=== PATIENT | female | born 1950 | race Caucasian/White ===

== ENCOUNTER → 2016-08-09 | Day surgery (SDC) | payer OTHER ==
[~2016-08-09] MED LIST: ALBU1.25 NEB; ALBU6.7H INH; AMIT1TAB79 PO; AMLO2.5T PO; ATOR40TA16 PO; CLIN1CAP6 PO; CLINDAMYCIN PHOS 900 MG/6 ML VIAL ONE; FURO20TA PO; GABA300C5 PO; HYDROmorphone HCL PF 2 MG/ML VIAL ONE; INSU1INJ14 SQ; LACTATED RINGER'S 1000 ML INJ 1,000 ML ONE; LEVA500T PO; LIDOCAINE 1%/EPINEPHrine 1:100,000 SOLN 20 ML VIAL ONE; LOSA50TA PO; MAGN400C2 PO; MECL-62 PO; METO50TA PO; MIDAZOLAM HCL 2 MG/2 ML VIAL ONE; MOME17I EACH NARE; NOVOLOGSS SQ; ONDANSETRON HCL 4 MG/2 ML VIAL IV PUSH ONE; OXYC1CAP PO; POTA-245 PO; PROM25TA5 PO; PROPOFOL 200 MG/20 ML AMP IV ONE; SODIUM CHLORIDE 0.9% INJ 10 ML ONE; SODIUM CHLORIDE 0.9% SOLN 100 ML BAG IV ONE; ZOLO50TA PO; ceFAZolin INJ 1,000 MG VIAL ONE
--- NOTE | 2016-08-11 09:44 | MP ---
cc: YOSELYN NAGEL M.D. DATE OF SURGERY 08/09/2016 PREOPERATIVE DIAGNOSES Status post left mastectomy POSTOPERATIVE DIAGNOSIS Status post left mastectomy OPERATION Left breast tissue pharmacy stock clerk and AlloMax reconstruction stage I [address] Nagel ANESTHESIA General INDICATIONS This is a 66-year-old white female with left mastectomy for breast cancer who has finished all her treatments and is ready for reconstruction. She has a slightly redundant skin flap. She underwent a detailed explanation of the procedure including prosthetic reconstruction versus autologous reconstruction, the stages of reconstruction with prosthesis and overall completion of the left side reconstruction followed by a symmetrizing procedure on the right was explained. The possibility of bleeding, infection, wound healing problems, wound dehiscence, exposed prosthesis and loss of prosthesis and reconstruction was explained and possible multiple steps of surgery were discussed, implants were shown, pharmacy stock clerk was shown. The patient was also explained about the AlloMax graft and she is willing to go ahead with the surgery. She had a Staph infection mastitis on the left breast in the past, approximately a year ago. PROCEDURE The patient was brought to the operating room, was given supine position and anesthesia was started. Prep and drape was done. IV antibiotics were given. The time-out was called and completed. The mastectomy scar was injected with lidocaine 1% with epi and saline mixture and the pectoralis major muscle border and underside was also injected. It was noted that there was a fair amount of scar tissue adhesions in the midportion of the mastectomy. The mastectomy scar was excised and discarded. The remaining flap thickness fatty tissue was noted to have a mild amount of fat necrosis and calcification. Coagulation type of appearance including one spot of liquid calcified tissue most likely mixed with the saline injection that was given. No other issues were noted. The surgical scar is dense against the pectoralis major muscle lateral border and a portion of it was freed with sharp dissection and some of it was left alone in the areas where it was to thin. The pectoralis major muscle was identified near the axillary fold and a passage was made under the muscle and extended into the remaining subpectoral space bringing it back out towards the lateral border and the lateral border with the Bovie. The cavity was doubly checked for hemostasis. Small bleeders were cauterized. No perforated vessels were encountered on the medial aspect. The inframammary fold was raised and lowered slightly. The lateral extent of the pocket was maintained at the anterior axillary line. An AlloMax graft was hydrated and placed smooth side towards the pharmacy stock clerk, serial number [id number]. The graft was tacked to the inframammary fold and lateral aspect only. The pharmacy stock clerk selected was [employer] MX tissue pharmacy stock clerk, catalogue number [id number] nominal capacity 600 cc. The serial number [id number]. The pharmacy stock clerk was emptied of all the air and while being held folded to let the vacuum form the shape of the pharmacy stock clerk folded on the backside. The pharmacy stock clerk was placed with the fill port oriented at 12 o'clock and the AlloMax graft was laid over the pharmacy stock clerk itself. It was not necessary to tack it any further. The cavity was irrigated clean and suctioned out as well. The bleeding was minimal. No need for a drain. The soft tissue was closed in two layers with 2-0 Vicryl in the deep tissue and dermal inverting sutures as well. The skin was closed with the 3-0 Prolene subcuticular running suture. The pharmacy stock clerk was filled using the supplied magnet and the fill tube, final volume added 360 cc of normal saline using a three-way knotted technique. The pharmacy stock clerk position and outlined were satisfactory. The patient remained stable. Intraoperative blood loss less than 10 cc. No complications. signed, not fully reviewed MD MAXINE Moreno/OMID /11:29 AM /9:32 AM RICKEY
== END | disposition home or self-care (01) ==
LOC: ESDC 07:43
PROVIDERS: ATTEND Plastic Surgery
DX: C50.912 Malignant neoplasm of unspecified site of left female breast (principal); Z90.12 Acquired absence of left breast and nipple; E11.9 Type 2 diabetes mellitus without complications; Z79.4 Long term (current) use of insulin
CPT/HCPCS: 00402; 15777; 19357; 82948; C1789; J1170; J2250; J2405; J3010; J7120; Q4100; J0690

== ENCOUNTER 2016-08-23 20:41 | Inpatient (IN) | payer OTHER, MEDICARE ==
[~2016-08-23] VITALS: Ht 162.6 cm; Wt 88.6 kg
[~2016-08-23 20:41] MED LIST changes: -CLIN1CAP6 PO; -CLINDAMYCIN PHOS 900 MG/6 ML VIAL ONE; -HYDROmorphone HCL PF 2 MG/ML VIAL ONE; -LACTATED RINGER'S 1000 ML INJ 1,000 ML ONE; -LEVA500T PO; -LIDOCAINE 1%/EPINEPHrine 1:100,000 SOLN 20 ML VIAL ONE; -MIDAZOLAM HCL 2 MG/2 ML VIAL ONE; -ONDANSETRON HCL 4 MG/2 ML VIAL IV PUSH ONE; -OXYC1CAP PO; -PROPOFOL 200 MG/20 ML AMP IV ONE; -SODIUM CHLORIDE 0.9% INJ 10 ML ONE; -SODIUM CHLORIDE 0.9% SOLN 100 ML BAG IV ONE; -ceFAZolin INJ 1,000 MG VIAL ONE
[2016-08-23 20:44] VITALS: BP 164/81; PULSE 112; RESP 16; TEMP 98.2; O2SAT 95
[2016-08-23 22:52] VITALS: BP 186/83; PULSE 84; RESP 16; TEMP 98.2; O2SAT 96
[2016-08-23] MEDS ORDERED: metroNIDAZOLE 500 MG INJ 100 ML IV STA (23:14)
[2016-08-23] MEDS ORDERED: AZTREONAM INJ 2,000 MG in SODIUM CHLORIDE 0.9% INJ 100 ML IV STA (23:14)
--- NOTE | 2016-08-23 23:14 | PD ---
HPI Chief Complaint: Skin Problem Time Seen by Provider: 22:45 Travel History International Travel<30 days: No Contact w/Intl Traveler<30days: No Traveled to known affect area: No History of Present Illness HPI The patient is a 66 year old female who presents to the [facility] emergency department with a history of left breast reconstruction with tissue adobe layer helper done on August [address] Nagel. The patient is status post left mastectomy after being diagnosed with infiltrating ductal carcinoma. The patient reports that she followed up with her surgeon for reexamination last Monday, week ago and when the bandages were removed the patient was noted to have redness and swelling to the left breast suspicious for postoperative infection. She was started on Bactrim. She reports that this past weekend she began to drain a yellow drainage from the left breast. She reports that this again sealed over and she thought things were improving up until today when the swelling, redness, pain increased and then she developed drainage from the wound again. She denies calling , to notify him of the recent changes. She denies having any known fevers or chills. She denies having any nausea or vomiting. She reports that over the last 2 days she has had intermittent diarrhea. She reports that yesterday she had 4-5 episodes of brown loose stool. She denies having any blood in her stool or mucus in her stool. She reports the diarrhea improved after taking Imodium as night. She also reports that she's had some cough and congestion with ear pressure over the last 2 days. The patient denies having any worsening shortness of breath. She reports that she does have some shortness of breath with exertion related to her COPD. She is not on any home O2. The patient denies any neck pain, chest pain, worsening shortness of breath, abdominal pain, vomiting, urinary symptoms, or neurologic symptoms. 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 Heart Rhythm Problems: No Cancer: Yes (LEFT BREAST) Cardiac Catheterization: No Cardiovascular Problems: Yes (CHF) High Cholesterol: No Congestive Heart Failure: Yes COPD: Yes Diabetes: Yes (INSULIN DEPENDENT) Diminished Hearing: No Endocrine: Yes Gastrointestinal Disorders: Yes GERD: Yes Genitourinary: Yes Hepatitis: No (INFLAMMED LIVER FROM ACUTE PANCREATITIS) Hiatal Hernia: No Hypertension: Yes Immune Disorder: No Implanted Vascular Access Dvce: No Musculoskeletal: Yes (DISC PROBLEM LOWER BACK) Neurologic: Yes (NEUROPATHY HANDS AND FEET, SHORT TERM MEMORY PROB FROM HYPOVOLEMIC SHOCK) Psychiatric: No Reproductive: No Respiratory: Yes (COPD) Pancreatitis: Yes Renal Failure: Yes (STAGE 3 KIDNEY DISEASE) Thyroid Disease: No Menopausal: Yes Past Surgical History Narrative Surgical The patient's past surgical history is significant for an appendectomy, left breast mastectomy, left breast reconstruction on August 09, 2016 with Ed placement, chemical sympathectomy to the celiac plexus, cholecystectomy, dilation and curettage, hernia repair, hysterectomy, ovarian surgery, partial pancreatectomy, splenectomy. Abdominal Surgery: Yes (PARTIAL PANCREAS REMOVED) AICD: No Appendectomy: Yes Cardiac Surgery: No Cholecystectomy: Yes (AND SPLEEN) Coronary Artery Bypass Graft: No Ear Surgery: No Endocrine Surgery: Yes (PARTIAL PANCREAS REMOVED) Eye Surgery: No Genitourinary Surgery: Yes (STONE RETREIVAL POSS RIGHT SIDE) Gynecologic Surgery: Yes (TOTAL HYSTERECTOMY) Hysterectomy: Yes Joint Replacement: No Oral Surgery: No Pacemaker: No Thoracic Surgery: No Other Surgery: Yes (R BREAST duct removal ) Social History Alcohol Use: Yes (OCC) Tobacco Use: No Substance Use: No Allergies-Medications (Allergen,Severity, Reaction): Coded Allergies: Contrast Media (Verified Allergy, Severe, Anaphylaxis, 08/23/16) Metformin (Verified Allergy, Severe, RENAL FAILURE, 08/23/16) Penicillin (Verified Allergy, Severe, Anaphylaxis, 08/23/16) Patient reports she has tolerated Keflex on multiple occassions. PCN allergy occured as a child while having a URI. Never s/b Allergy MD to confirm. Aspirin (Verified Allergy, Intermediate, Nausea/Vomiting, 08/23/16) BLEEDING WHEN ENOUGH IS TAKEN Barium Sulfate (Verified Allergy, Intermediate, Nausea/Vomiting, 08/23/16) Lisinopril (Verified Allergy, Intermediate, Tachycardia, 08/23/16) Lemon (Verified Allergy, Unknown, Nausea/Vomiting, 08/23/16) PATIENT STATED " I AM ALLERGIC TO LEMON EVERYTIME I EAT OR DRINK SOMETHING WITH IT I GET NAUSIATED OR VOMIT" Lortab (Verified Allergy, Unknown, 08/23/16) NOT SURE IF THIS WAS THE CASE OF HER NAUSEA, HAD A FENTANYL PATCH AT THE SAME TIME Toradol (Verified Allergy, Unknown, PHYSICIAN CANCELLED DUE TO VOMITING, ) Reported Meds & Prescriptions Reported Meds & Active Scripts Active Reported Tresiba Flextouch Pen Inj (Insulin Degludec Inj) 300 unit/3 ML Pen 50 Units SQ HS Zoloft (Sertraline HCl) 50 Mg Tab 50 Mg PO HS Phenergan (Promethazine HCl) 25 Mg Tab 25 Mg PO Q4HR PRN Klor-Con M20 (Potassium Chloride Microencaps) 20 Meq Tab 20 Meq PO DAILY Nasonex Nasal [place] (Mometasone Furoate) 50 Mcg/Act Naspr 2 [place] EACH NARE DAILY Metoprolol Tartrate 50 Mg Tab 50 Mg PO BID Meclizine (Meclizine HCl) 25 Mg Tab 25 Mg PO PRN DIZZINESS PRN Magnesium Oxide 400 Mg Cap 1 Cap PO DAILY Losartan (Losartan Potassium) 50 Mg Tab 50 Mg PO BID Novolog Inj (Insulin Aspart) 100 Unit/Ml Inj 15 Units SQ TIDPC Gabapentin 300 Mg Cap 900 Mg PO HS Gabapentin 300 Mg Cap 300 Mg PO BID Furosemide 20 Mg Tab 20 Mg PO DAILY Elavil (Amitriptyline HCl) 25 Mg Tab 50 Mg PO HS Atorvastatin (Atorvastatin Calcium) 40 Mg Tab 40 Mg PO HS Amlodipine (Amlodipine Besylate) 2.5 Mg Tab 2.5 Mg PO DAILY Albuterol Neb (Albuterol Sulfate) 1.25 Mg/3 Ml Neb 1.25 Mg NEB Q6HR NEB PRN Proventil Hfa 6.7 GM Inh (Albuterol Sulfate) 90 Mcg/Act Aer 1 Puff INH Q6H PRN Review of Systems Except as stated in HPI: all other systems reviewed are Neg General / Constitutional: No: Fever Eyes: No: Visual changes HENT: Positive: Congestion, No: Headaches Cardiovascular: Positive: Dyspnea on exertion, No: Chest Pain or Discomfort Respiratory: Positive: Cough, No: Shortness of Breath Gastrointestinal: Positive: Diarrhea, No: Nausea, Vomiting, Abdominal Pain Genitourinary: No: Dysuria Musculoskeletal: No: Pain Skin: Positive Lumps, Positive Change in Pigmentation, Positive Other (swelling , redness to the left breast), No Rash Neurologic: No: Weakness Psychiatric: No: Depression Endocrine: No: Polydipsia Hematologic/Lymphatic: No: Easy Bruising Physical Exam Narrative General: The patient is a well-developed well-nourished female in no acute distress. Head and Neck exam: Head is normocephalic atraumatic. Eyes: EOMI, pupils are equal round and reactive to light. Nose: Midline septum with pink mucous membranes Mouth: Dentition unremarkable. Moist mucus membranes. Posterior oropharynx is not erythematous. No tonsillar hypertrophy. Uvula midline. Airway patent. Neck: No palpable lymphadenopathy. No nuchal rigidity. No thyromegaly. Cardiovascular: Regular rate and rhythm without murmurs, gallops, or rubs. Lungs: Clear to auscultation bilaterally. No wheezes, rhonchi, or rales. Abdomen: Soft, without tenderness to palpation in all 4 quadrants of the abdomen. No guarding, rebound, or rigidity. Normal bowel sounds are audible. No tenderness on palpation of McBurney's point. Extremities: No clubbing, cyanosis, or edema. 2+ pulses in all 4 extremities. No calf tenderness on palpation. Back: No spinous process tenderness to palpation. No costovertebral angle tenderness to palpation. Neurologic Exam: Grossly nonfocal. Skin Exam: On examination of the area of interest, the left breast, the patient is noted to have erythema surrounding her postop wound, with an area of fluctuance noted along the medial aspect. There is no pointing. Upon pressure of the area the patient is noted to have a thin yellow drainage from the lateral aspect of the wound. Data Data Last Documented VS Vital Signs Date Time Temp Pulse Resp B/P Pulse Ox O2 Delivery O2 Flow Rate FiO2 08/24/16 01:00 78 18 125/57 96 08/23/16 22:52 98.2 Orders Electrocardiogram (08/23/16 23:00) Complete Blood Count With Diff (08/23/16 23:00) Comprehensive Metabolic Panel (08/23/16 23:00) Prothrombin Time / Inr (Pt) (08/23/16 23:00) Act Partial Throm Time (Ptt) (08/23/16 23:00) Blood Culture (08/23/16 23:00) C-Reactive Protein (Crp) (08/23/16 23:00) Magnesium (Mg) (08/23/16 23:00) Wound Culture And Gram Stain (08/23/16 23:00) Chest, Single Ap (08/23/16 23:00) Iv Access Insert/Monitor (08/23/16 23:00) Ecg Monitoring (08/23/16 23:00) Oximetry (08/23/16 23:00) Lactic Acid Sepsis Protocol (08/23/16 23:00) Sodium Chlor 0.9% 1000 Ml Inj (Ns 1000 M (08/23/16 23:15) Vancomycin Inj (Vancomycin Inj) (08/23/16 23:15) Aztreonam Inj (Azactam Inj) (08/23/16 23:14) Metronidazole 500 Mg Inj (Flagyl 500 Mg (08/23/16 23:14) Admit Order (Ed Use Only) (08/24/16 01:44) Consult Plastic Surgery (08/24/16 ) Labs Laboratory Tests Test 08/23/16 08/24/16 23:50 01:05 White Blood Count 17.2 TH/MM3 Red Blood Count 3.88 MIL/MM3 Hemoglobin 11.6 GM/DL Hematocrit 35.4 % Mean Corpuscular Volume 91.3 FL Mean Corpuscular Hemoglobin 30.0 PG Mean Corpuscular Hemoglobin 32.8 % Concent Red Cell Distribution Width 15.7 % Platelet Count 682 TH/MM3 Mean Platelet Volume 8.9 FL Neutrophils (%) (Auto) 64.7 % Lymphocytes (%) (Auto) 26.3 % Monocytes (%) (Auto) 7.2 % Eosinophils (%) (Auto) 1.0 % Basophils (%) (Auto) 0.8 % Neutrophils # (Auto) 11.1 TH/MM3 Lymphocytes # (Auto) 4.5 TH/MM3 Monocytes # (Auto) 1.2 TH/MM3 Eosinophils # (Auto) 0.2 TH/MM3 Basophils # (Auto) 0.1 TH/MM3 CBC Comment DIFF FINAL Differential Comment Prothrombin Time 10.7 SEC Prothromb Time International 1.0 RATIO Ratio Activated Partial 26.3 SEC Thromboplast Time Sodium Level 142 MEQ/L Potassium Level 3.4 MEQ/L Chloride Level 111 MEQ/L Carbon Dioxide Level 24.2 MEQ/L Anion Gap 7 MEQ/L Blood Urea Nitrogen 14 MG/DL Creatinine 0.72 MG/DL Estimat Glomerular Filtration 81 ML/MIN Rate Random Glucose 117 MG/DL Lactic Acid Level 1.7 mmol/L Calcium Level 7.7 MG/DL Magnesium Level 2.0 MG/DL Total Bilirubin 0.4 MG/DL Aspartate Amino Transf 12 U/L (AST/SGOT) Alanine Aminotransferase 17 U/L (ALT/SGPT) Alkaline Phosphatase 60 U/L C-Reactive Protein 0.38 MG/DL Total Protein 6.6 GM/DL Albumin 3.1 GM/DL MDM Medical Decision Making Medical Screen Exam Complete: Yes Emergency Medical Condition: Yes Medical Record Reviewed: Yes Interpretation(s) Last Impressions Chest X-Ray 08/23/16 2300 Signed Impressions: Service Date/Time: Tuesday, August 23, 2016 23:41 - CONCLUSION: 1. Mild basilar density most characteristic of atelectasis. No effusion or pneumothorax. Dennis Powell MD Differential Diagnosis Left breast abscess, versus cellulitis, versus sepsis, versus seroma. Narrative Course During the course of the patients emergency department visit, the patients history, examination, and differential diagnosis were reviewed with the patient. The patient had IV access obtained and blood work sent for analysis. The patient was placed on a residential monitor with oximetry and blood pressure monitoring. An EKG was done on arrival. The patient's EKG shows a sinus rhythm , no acute ST segment elevation or depression. A call was placed out to the patient's surgeon, . He did agree to see the patient in consultation. [facility] Blood cultures 2 were drawn, a wound culture was done of the drainage from the patient's left breast. The patient was provided normal saline 1 L IV fluid bolus, Zosyn 3.375 g IV, vancomycin 1 g IV. The patients laboratory studies were reviewed and remarkable for a white count of 17.2, hemoglobin 11.6, platelets 682 with an unremarkable differential. CMP is remarkable for potassium of 3.4, chloride 111, glucose 117, calcium 7.7, AST 12, C-reactive protein 0.38, lactic acid 1.7. PT PTT within normal limits. Radiology studies were reviewed and remarkable for basilar atelectasis, no other acute abnormality. The patients results were discussed with the patient, including the plan of care. I explained that further testing and/ or monitoring is indicated based on the patients history, examination, and/ or laboratory findings. Therefore, I recommended admission for additional evaluation. The patient expressed understanding and was agreeable with this plan. The patient was admitted to the hospital in stable condition and sent to a [facility]. Sepsis Criteria SIRS Criteria (2 or more): WBC > 14398, < 4000 or > 10% bands Sepsis Criteria (SIRS+source): Infect source susp/known Physician Communication Physician Communication I spoke to regarding this patient's case at 11:10 PM. He did agree to see the patient consultation. He requested that the [facility] be [facility]. The patient's case was [facility] with [facility] who did agree to admit the patient to Dr. Ryan service. Diagnosis Primary Impression: Postoperative infection of breast incision Qualified Code: T81.4XXA - Postoperative infection of breast incision, initial encounter Jie Feng MD Aug 23, 2016 23:14 initial encounter Jie Feng MD Aug 23, 2016 23:14
[2016-08-23] MEDS ORDERED: VANCOMYCIN INJ 1,000 MG in SODIUM CHLOR 0.9% 250 ML INJ 250 ML IV ONE (23:15)
[2016-08-23] MEDS ORDERED: SODIUM CHLOR 0.9% 1000 ML INJ 1,000 ML IV ONE (23:15)
[2016-08-24] VITALS (10 sets, daily range): BP systolic 100–155; BP diastolic 56–70; PULSE 64–92; RESP 15–22; TEMP 97.5–98; O2SAT 93–96
[2016-08-24 00:23] LABS: AUTOMATED NEUTROPHIL # 11.1 TH/MM3 (1.8-7.7); BASOPHIL # 0.1 TH/MM3 (0-0.2); BASOPHIL % 0.8 % (0.0-2.0); EOSINOPHIL # 0.2 TH/MM3 (0-0.4); HEMATOCRIT 35.4 % (35.0-46.0); HEMO FLAGS DIFF FINAL; LYMPH % 26.3 % (9.0-44.0); LYMPHOCYTE # 4.5 TH/MM3 (1.0-4.8); MEAN CELL VOLUME 91.3 FL (80.0-100.0); MEAN CORPUSCULAR HGB CONC 32.8 % (32.0-36.0); MONO % 7.2 % (0.0-8.0); NEUT % 64.7 % (16.0-70.0); PLATELET COUNT 682 TH/MM3 (150-450); RED BLOOD COUNT 3.88 MIL/MM3 (4.00-5.30); RED CELL DISTRIBUTION WIDTH 15.7 % (11.6-17.2); WHITE BLOOD COUNT 17.2 TH/MM3 (4.0-11.0)
[2016-08-24 00:36] LABS: APTT (PATIENT) 26.3 SEC (24.3-30.1); PROTHROMBIN TIME - PATIENT 10.7 SEC (9.8-11.6)
--- NOTE | 2016-08-24 00:43 | RADRPT ---
EXAM DATE/TIME: 08/23/2016 23:41 [facility] COMPARISON: CHEST SINGLE AP, September 25, 2015, 10:37. INDICATIONS : Cough. Congestion. MEDICAL HISTORY : None. SURGICAL HISTORY : None. ENCOUNTER: Initial ACUITY: 3 days PAIN SCORE: 7/10 LOCATION: Bilateral chest FINDINGS: A single view of the chest demonstrates postoperative changes within the left breast. Minimal basilar atelectasis. No effusion. No pneumothorax. Heart size normal. CONCLUSION: 1. Mild basilar density most characteristic of atelectasis. No effusion or pneumothorax. Dennis Powell MD on August 24, 2016 at 0:40 Board Certified Radiologist. This report was verified electronically.
[2016-08-24 01:29] LABS: ALT (GPT) 17 U/L (10-53); ANION GAP 7 MEQ/L (5-15); AST (GOT) 12 U/L (15-37); BICARBONATE 24.2 MEQ/L (21.0-32.0); BLOOD UREA NITROGEN 14 MG/DL (7-18); CHLORIDE 111 MEQ/L (98-107); GLOMERULAR FILTRATION RATE 81 ML/MIN (>89); POTASSIUM 3.4 MEQ/L (3.5-5.1); SODIUM (NA) 142 MEQ/L (136-145)
[2016-08-24 01:32] LABS: ALKALINE PHOSPHATASE 60 U/L (45-117); TOTAL BILIRUBIN ADULT 0.4 MG/DL (0.2-1.0)
[2016-08-24] MEDS ORDERED: AZTREONAM INJ 2,000 MG in SODIUM CHLORIDE 0.9% INJ 100 ML IV SCH (02:45)
[2016-08-24] MEDS ORDERED: metroNIDAZOLE 500 MG INJ 100 ML IV SCH (02:45)
[2016-08-24] MEDS ORDERED: VANCOMYCIN INJ 1,000 MG in SODIUM CHLOR 0.9% 250 ML INJ 250 ML IV SCH (02:45)
[2016-08-24] MEDS ORDERED: SODIUM CHLORIDE 0.9% FLUSH 10 ML FLUSH IVF PRN (02:45)
[2016-08-24] MEDS ORDERED: MORPHINE SULFATE 4 MG/ML INJ IV PUSH ONE (06:00)
[2016-08-24] MEDS ORDERED: AMITRIPTYLINE HCL 25 MG TAB PO ONE (06:00)
[2016-08-24] MEDS: AZTREONAM INJ 2,000 MG in SODIUM CHLORIDE 0.9% INJ 100 ML IV SCH ×2 (07:53→17:02)
[2016-08-24] MEDS: metroNIDAZOLE 500 MG INJ 100 ML IV SCH ×3 (07:54→23:12)
[2016-08-24] MEDS: SODIUM CHLORIDE 0.9% FLUSH 10 ML FLUSH IV FLUSH SCH ×2 (08:18→21:00)
--- NOTE | 2016-08-24 09:08 | HHI.HP ---
HPI Service [facility] Hospitalists Primary Care Physician Ghanshyam Wright Admission Diagnosis Left breast infection post op Chief Complaint: Left breast infection Travel History International Travel<30 Days: No Contact w/Intl Traveler <30 Da: No Traveled to Known Affected Are: No History of Present Illness Mrs. Douglass is a pleasant 66 y/o female with invasive ductal carcinoma of the left breast s/p mastectomy in 03/2016, diabetes mellitus, GERD, hypertension , osteoarthritis, peripheral neuropathy, and hyperlipidemia. Pt was previously seen by us in 04/2015 with an extensive abscess in the left breast and was seen by Dr. Lawler and underwent incision and drainage. Subsequently she was treated with IV antibiotics at that time. Cultures at that time grew out Staph aureus. She was found to have a lump in her left breast and biopsy in 02/2016 revealed invasive ductal carcinoma and pt underwent left breast mastectomy and sentinel node biopsy in 03/2016 with all lymph nodes being negative. Pt was seen by Dr. Nagel and underwent left breast reconstruction with tissue cosmetology professor on August 09, 2016. She reports that she followed up with Dr. Nagel for reexamination 1 week ago and when the bandages were removed the patient was noted to have redness and swelling to the left breast suspicious for postoperative infection. She was started on Bactrim. She reports that this past weekend she began to note yellow drainage from the left breast. She reports that this again sealed over and she thought things were improving up until yesterday when the swelling , redness, pain increased and then she developed drainage from the wound again. She did not call to notify him of the recent changes. She denies any fevers or chills, nausea or vomiting. She reports that over the last 2 days she has had intermittent diarrhea. She reports that yesterday she had 4-5 episodes of brown loose stool. She denies having any blood in her stool or mucus in her stool. She reports the diarrhea improved after taking Imodium as night. The patient denies having any worsening shortness of breath. She reports that she does have some shortness of breath with exertion related to her COPD, she is not on any home O2. The patient denies any chest pain, worsening shortness of breath from baseline, abdominal pain, vomiting, urinary symptoms, or neurologic symptoms. Review of Systems Constitutional: DENIES: Fever, Chills Eyes: DENIES: Vision loss Ears, nose, mouth, throat: DENIES: Hearing loss, Nasal discharge, Epistaxis Respiratory: DENIES: Wheezing, Shortness of breath Cardiovascular: COMPLAINS OF: Dyspnea on Exertion, DENIES: Chest pain, Palpitations Gastrointestinal: COMPLAINS OF: Diarrhea, DENIES: Abdominal pain, Black stools , Bloody stools, Nausea, Vomiting Genitourinary: DENIES: Hematuria, Dysuria Musculoskeletal: DENIES: Back pain Integumentary: DENIES: Rash Neurologic: DENIES: Headache Past Family Social History Past Medical History Left breast invasive ductal carcinoma Anemia Angina Asthma Cataracts Chronic Obstructive Pulmonary Disease Colitis Diabetes Type II Gastroesophageal Reflux Disease Hypertension Migraine Osteoarthritis Osteopenia Peptic Ulcer Disease Peripheral Neuropathy Pneumonia Preferred Language for Healthcare Information (Haitian) Thyroid Disease Upper Endoscopy Past Surgical History Left breast reconstruction on August 09, 2016 with AlloMax reconstruction Left breast mastectomy 03/2016 Appendectomy Breast biopsy Cholecystectomy Hernia repair Sigmoidoscopy Hysterectomy, Complete in 1980 Reported Medications Tresiba Flextouch Pen Inj (Insulin Degludec Inj) 300 unit/3 ML Pen 50 Units SQ HS Zoloft (Sertraline HCl) 50 Mg Tab 50 Mg PO HS Phenergan (Promethazine HCl) 25 Mg Tab 25 Mg PO Q4HR PRN Klor-Con M20 (Potassium Chloride Microencaps) 20 Meq Tab 20 Meq PO DAILY Nasonex Nasal Toney (Mometasone Furoate) 50 Mcg/Act Naspr 2 Toney EACH NARE DAILY Metoprolol Tartrate 50 Mg Tab 50 Mg PO BID Meclizine (Meclizine HCl) 25 Mg Tab 25 Mg PO PRN DIZZINESS PRN Magnesium Oxide 400 Mg Cap 1 Cap PO DAILY Losartan (Losartan Potassium) 50 Mg Tab 50 Mg PO BID Novolog Inj (Insulin Aspart) 100 Unit/Ml Inj 15 Units SQ TIDPC Gabapentin 300 Mg Cap 900 Mg PO HS Gabapentin 300 Mg Cap 300 Mg PO BID Furosemide 20 Mg Tab 20 Mg PO DAILY Elavil (Amitriptyline HCl) 25 Mg Tab 50 Mg PO HS Atorvastatin (Atorvastatin Calcium) 40 Mg Tab 40 Mg PO HS Amlodipine (Amlodipine Besylate) 2.5 Mg Tab 2.5 Mg PO DAILY Albuterol Neb (Albuterol Sulfate) 1.25 Mg/3 Ml Neb 1.25 Mg NEB Q6HR NEB PRN Proventil Hfa 6.7 GM Inh (Albuterol Sulfate) 90 Mcg/Act Aer 1 Puff INH Q6H PRN Allergies: Coded Allergies: Contrast Media (Verified Allergy, Severe, Anaphylaxis, 08/23/16) Metformin (Verified Allergy, Severe, RENAL FAILURE, 08/23/16) Penicillin (Verified Allergy, Severe, Anaphylaxis, 08/23/16) Patient reports she has tolerated Keflex on multiple occassions. PCN allergy occured as a child while having a URI. Never s/b Allergy MD to confirm. Aspirin (Verified Allergy, Intermediate, Nausea/Vomiting, 08/23/16) BLEEDING WHEN ENOUGH IS TAKEN Barium Sulfate (Verified Allergy, Intermediate, Nausea/Vomiting, 08/23/16) Lisinopril (Verified Allergy, Intermediate, Tachycardia, 08/23/16) Lemon (Verified Allergy, Unknown, Nausea/Vomiting, 08/23/16) PATIENT STATED " I AM ALLERGIC TO LEMON EVERYTIME I EAT OR DRINK SOMETHING WITH IT I GET NAUSIATED OR VOMIT" Lortab (Verified Allergy, Unknown, 08/23/16) NOT SURE IF THIS WAS THE CASE OF HER NAUSEA, HAD A FENTANYL PATCH AT THE SAME TIME Toradol (Verified Allergy, Unknown, PHYSICIAN CANCELLED DUE TO VOMITING, ) Family History Mother is . Father is . 1 brother who is . Social History Hx of tobacco use, quit 45 years ago but smoke 1ppd for 4 years She is an active drinker. Physical Exam Vital Signs Vital Signs Date Time Temp Pulse Resp B/P Pulse Ox O2 Delivery O2 Flow Rate FiO2 08/24/16 05:00 82 150/70 96 08/24/16 03:00 80 134/65 94 08/24/16 02:38 95 08/24/16 02:00 80 22 131/63 94 08/24/16 01:00 78 18 125/57 96 08/24/16 00:30 64 15 100/56 94 08/24/16 00:00 92 18 148/66 96 08/23/16 22:52 98.2 84 16 186/83 96 08/23/16 20:44 98.2 112 16 164/81 95 Physical Exam GENERAL: This is a well-nourished, well-developed patient, in no apparent distress. HEENT: Atraumatic. Normocephalic. No temporal or scalp tenderness. No scleral icterus. Airway patent. NECK: Trachea midline, supple, nontender. CARDIO: Regular. RESP: CTA bilaterally. ABD: +BS, soft, non-tender, nondistended. EXT: Extremities without clubbing, cyanosis, or edema. SKIN: Left chest erythema around her postop wound, with an area of fluctuance noted along the medial aspect. NEURO: Awake and alert. Motor and sensory grossly within normal limits. Normal speech. Laboratory Laboratory Tests Test 08/23/16 08/24/16 23:50 01:05 White Blood Count 17.2 Red Blood Count 3.88 Hemoglobin 11.6 Hematocrit 35.4 Mean Corpuscular Volume 91.3 Mean Corpuscular Hemoglobin 30.0 Mean Corpuscular Hemoglobin 32.8 Concent Red Cell Distribution Width 15.7 Platelet Count 682 Mean Platelet Volume 8.9 Neutrophils (%) (Auto) 64.7 Lymphocytes (%) (Auto) 26.3 Monocytes (%) (Auto) 7.2 Eosinophils (%) (Auto) 1.0 Basophils (%) (Auto) 0.8 Neutrophils # (Auto) 11.1 Lymphocytes # (Auto) 4.5 Monocytes # (Auto) 1.2 Eosinophils # (Auto) 0.2 Basophils # (Auto) 0.1 CBC Comment DIFF FINAL Differential Comment Prothrombin Time 10.7 Prothromb Time International 1.0 Ratio Activated Partial 26.3 Thromboplast Time Sodium Level 142 Potassium Level 3.4 Chloride Level 111 Carbon Dioxide Level 24.2 Anion Gap 7 Blood Urea Nitrogen 14 Creatinine 0.72 Estimat Glomerular Filtration 81 Rate Random Glucose 117 Lactic Acid Level 1.7 Calcium Level 7.7 Magnesium Level 2.0 Total Bilirubin 0.4 Aspartate Amino Transf 12 (AST/SGOT) Alanine Aminotransferase 17 (ALT/SGPT) Alkaline Phosphatase 60 C-Reactive Protein 0.38 Total Protein 6.6 Albumin 3.1 Date/Time Procedure Status Source Growth 08/24/16 00:25 Gram Stain - Final Resulted Wound Breast 08/24/16 00:25 Wound Culture Resulted Wound Breast Pending 08/24/16 00:00 Aerobic Blood Culture Received Blood Peripheral Pending 08/24/16 00:00 Anaerobic Blood Culture Received Blood Peripheral Pending Result Diagram: 08/23/16 5010 08/24/16 0105 Imaging Last Impressions Chest X-Ray 08/23/16 2300 Signed Impressions: Service Date/Time: Tuesday, August 23, 2016 23:41 - CONCLUSION: 1. Mild basilar density most characteristic of atelectasis. No effusion or pneumothorax. Dennis Powell MD Septic Shock Reassessment Heart: Regular rate and rhythm Lungs: Clear Skin: Warm Assessment and Plan Problem List: (1) Postoperative infection of breast incision Status: Acute Plan: - Pt with hx of left breast invasive ductal carcinoma s/p left breast mastectomy in 03/2016 - Pt underwent left breast reconstruction with tissue cosmetology professor on August 09, 2016. She reports that she followed up with Dr. Nagel for reexamination 1 week ago and was noted to have redness and swelling to the left breast suspicious for postoperative infection. She was started on Bactrim. She reports that this past weekend she began to note yellow drainage from the left breast, but she thought things were improving up until yesterday when the swelling, redness, pain increased and then she developed drainage from the wound again. - Pt was given Aztreonam, Vancomycin and Flagyl in the ED - Wound Culture ans blood cultures were drawn in the ED - Pt has been afebrile. - WBC count was over 17,000 at admission. - Dr. Nagel is consulted and pt is planned for surgical exploration and possible removal of the tissue cosmetology professor - Consult ID, pt was previously seen by ID in for a breast abscess which grew out MSSA and she was treated with Cefazolin. - Pt was continued on Aztreonam, Vancomycin and Flagyl from the ED. - Monitor labs - IVF - Pt is NPO for surgery - Supportive care - DVT prophylaxis with SCDs for now. (2) DM (diabetes mellitus) Status: Chronic Plan: - NovoLog SSI - Accu checks (3) HTN (hypertension) Status: Chronic Plan: - Resume Metoprolol - Her BP was low/normal overnight - Hold Losartan and Amlodipine for now and monitor. (4) COPD (chronic obstructive pulmonary disease) Status: Acute Plan: - Duonebs PRN (5) Depression Status: Chronic Plan: - Resume home meds Assessment and Plan Patient examined. Assessment and plan formulated with Mariama Mclaughlin PA-C. I agree with the above. Physician Certification 2 Midnight Certification Type: Admission for Inpatient Services Order for Inpatient Services The services are ordered in accordance with Medicare regulations or non- Medicare payer requirements, as applicable. In the case of services not specified as inpatient-only, they are appropriately provided as inpatient services in accordance with the 2-midnight benchmark. Estimated LOS (days): 4 4 days is the estimated time the patient will need to remain in the hospital, assuming treatment plan goals are met and no additional complications. Post-Hospital Plan: Not yet determined Problem Qualifiers (1) Postoperative infection of breast incision: Qualified Code: T81.4XXA - Postoperative infection of breast incision, initial encounter (2) DM (diabetes mellitus): Mariama Mclaughlin Aug 24, 2016 09:08 Azael Ryan DO Aug 25, 2016 22:57
--- NOTE | 2016-08-24 09:25 | MB ---
cc: YOSELYN RUANO M.D. DATE OF CONSULTATION 08/24/2016 REASON FOR CONSULTATION Possible left breast reconstruction infection. HISTORY This is a 66-year-old white female who underwent surgery for left breast cancer couple of weeks back on August 09. She had mastectomy and a delayed tissue nicking machine operator and AlloMax placement reconstruction. She did well immediate postop. She was seen a week later in the [facility] and was noted to have some redness along the surgical suture line and some spotting on the dressing. She was started on oral antibiotics prophylactically. She presented to the emergency room last night on her own and was noted to have bulging of the surgical incision with some drainage coming out on the medial aspect in particular. The emergency room physician has started her on IV antibiotics. She is being admitted to the [facility] and a culture sample has been taken. It is noted that her blood count WBC 17,000. She is not febrile. She does not have generalized sickness and otherwise is feeling well. The patient is a insulin-dependent diabetic, moderately obese, has had the mastectomy in the late part of March 2016. Reconstruction was a delayed one. Prior to the mastectomy she had an episode of mastitis - staph. PAST MEDICAL HISTORY The patient's other history includes: 1. COPD 2. Congestive heart failure 3. Asthma 4. Chronic arthritis 5. History of pancreatitis. 6. History of pancreatectomy and splenectomy. 7. Chronic renal insufficiency 8. Hyperlipidemia 9. Hypertension 10. Depression 11. Obesity 12. Hypothyroid 13. Insulin-dependent diabetes 14. Vitamin D deficiency PAST SURGICAL HISTORY She also has a history of surgery: 1. Appendix 2. Left mastectomy 3. Left breast reconstruction 4. Clinical sympathectomy on the celiac plexus. 5. Gallbladder removal 6. D&C 7. Hernia repair 8. Hysterectomy 9. Ovarian surgery 10. Partial pancreatectomy and splenectomy 11. It is not clear if she had the Pneumovax, but possibly she has been given that after the splenectomy. MEDICATIONS Current medications listed include a long list of: 1. Insulin 2. Zoloft 3. Phenergan 4. Potassium 5. Nasonex 6. Metoprolol 7. Meclizine 8. Magnesium 9. Losartan 10. Gabapentin 11. Lasix 12. Elavil 13. Atorvastatin 14. Amlodipine 15. Albuterol 16. Proventil ALLERGIES LISTED Include: METFORMIN, PENICILLIN, ASPIRIN, BARIUM, LISINOPRIL, LEMON FOOD AND ALSO LORTAB AND TORADOL. SOCIAL HISTORY The patient is a nonsmoker. No alcohol or drug abuse. No history of any risk factor for hepatitis or HIV. No history of blood transfusion. PHYSICAL EXAM The examination shows a 66-year-old white female with stable vital signs in the emergency room setting. VITAL SIGNS: Her vitals are showing a pulse rate in the range of 80 on the monitor. She is afebrile. GENERAL: She appears otherwise well rested. She is alert, oriented and able to move around by herself. The general examination is grossly within acceptable range. HEAD AND NECK: Shows clear sclerae, equal pupils. Trachea is in midline. There is no obvious thyromegaly. Neck movements are normal. CHEST: The chest has good expansion with normal breathing. Her breath and heart sounds have been recorded normal. EXTREMITIES: The extremities are grossly normal. There is no lymphedema on the left upper extremity. BREASTS: The local examination of the left breast reconstruction shows a horizontal mid breast incision with surgical suture in place. There is a bulging area on the medial aspect with discoloration of the skin present. No clear opening or drainage noted this morning. She also is coming up with a second small bulge on the lateral third of the incision most likely it is a continuous process. The breast feels relatively normal to touch on both sides. The redness is minimal, mostly the desquamation is more obvious now. The patient does not have a drain in place. The tissue expanders in the upper pole of the chest are not tender to touch or pressure. There is no sign of any lymphatic streaking in the left axilla. RECOMMENDATIONS The patient was advised that most likely this is a surgical issue while she is getting IV antibiotic. It is not likely to resolve with the antibiotic alone plus due to her multiple medical issues and insulin-dependent diabetes, it is advisable to go ahead and explore the left breast. There is a high chance that the nicking machine operator and the AlloMax will need to be removed and debrided, debride the area and allow her heal over completely and then consider a reconstruction in the future if she still desires to go ahead with that. There may be a small window of trying to salvage the reconstruction if the exploration reveals the process is limited to outside of the nicking machine operator and AlloMax cavity. If an attempt at salvage is made, it may or may not be possible to have the exact match of the nicking machine operator available and it may be necessary to use any type of available prosthesis with an nicking machine operator or an implant in order to maintain the pocket and the skin flaps. The patient understands that there is a high likelihood of removing the nicking machine operator and the AlloMax at this point. The patient will be kept n.p.o. and the OR will be called to schedule a time as soon as possible. The patient will continue under the medical service and on IV antibiotics. She may have to be hospitalized several days for the IV antibiotic protocol. MD MAXINE Moreno/OMID /8:48 AM /9:05 AM RICKEY
[2016-08-24] MEDS ORDERED: PROPOFOL 200 MG/20 ML AMP IV ONE (10:11)
[2016-08-24] MEDS: FLUTICASONE PROPIONATE 50 MCG/ACT 16 GM NASAL SPRAY EACH NARE SCH (11:00)
[2016-08-24] MEDS ORDERED: ONDANSETRON HCL 4 MG/2 ML VIAL IV PRN (11:30)
[2016-08-24] MEDS ORDERED: ACETAMINOPHEN 325 MG TAB PO PRN (11:30)
[2016-08-24] MEDS ORDERED: ALBUTEROL SULFATE 90 MCG/ACT HFA 8 GM INHALER INH PRN (12:00)
[2016-08-24] MEDS ORDERED: RESP: ALBUTEROL 2.5 MG/IPRATROPIUM 0.5 MG NEB (PRN) NEB (12:00)
[2016-08-24] MEDS: POTASSIUM CHLORIDE 20 MEQ CONTROLLED RELEASE TAB PO SCH (12:07)
[2016-08-24] MEDS: METOPROLOL TARTRATE 50 MG TAB PO SCH ×2 (12:08→21:00)
[2016-08-24] MEDS: VANCOMYCIN INJ 1,000 MG in SODIUM CHLOR 0.9% 250 ML INJ 250 ML IV SCH (12:08)
[2016-08-24] MEDS: GABAPENTIN 300 MG CAP PO SCH ×3 (12:08→21:00)
[2016-08-24] MEDS: SODIUM CHLOR 0.9% 1000 ML INJ 1,000 ML IV SCH ×2 (12:09→23:31)
[2016-08-24] MEDS: INSULIN ASPART SUPPLEMENTAL SCALE SQ SCH ×3 (12:15→23:30)
[2016-08-24] MEDS: MORPHINE SULFATE 4 MG/ML INJ IV PUSH PRN (13:22)
--- NOTE | 2016-08-24 16:34 | PD.CONS ---
History of Present Illness Service Infectious disease Consult Requested By Dr. Ryan Reason for Consult Evaluate patient with left surgical site breast infection Primary Care Physician Ghanshyam Wright Diagnoses: History of Present Illness Patient seen and examined. Records reviewed. Patient is a 66-year-old female diagnosed to have invasive ductal carcinoma last March 2016. She underwent left breast mastectomy and sentinel lymph node biopsy April 27, 2016. The lymph nodes were all negative. On July she underwent left breast reconstruction with placement of a tissue seat maker. A week after the surgery she went for her follow-up and she had an area of redness. She was placed on Bactrim. This weekend there was an area that spontaneously drained orange bloody colored fluid. It sealed up. However on day of admission it started draining again and so she percent to the hospital for further evaluation and treatment. She continued to have the redness. She she didn't think she had any fever or chills or sweats. There's been no respiratory GI or any urinary complaints. Since admission she has not been febrile. Her WBC count is 17,000. Patient was seen by plastic surgery, and plans to take her to surgery today. Patient currently is on IV vancomycin and Azactam. Infectious disease consultation has been requested to evaluate the patient. Review of Systems Constitutional: DENIES: Fever, Chills, Night Sweats Eyes: DENIES: Eye pain Ears, nose, mouth, throat: DENIES: Nasal discharge, Oral lesions, Throat pain, Running Nose, Sinus Pain, Toothache Respiratory: DENIES: Cough, Shortness of breath Cardiovascular: DENIES: Chest pain, Palpitations, Syncope Gastrointestinal: DENIES: Abdominal pain, Diarrhea, Nausea, Vomiting, Difficulty Swallowing Genitourinary: DENIES: Urinary frequency, Dysuria Musculoskeletal: DENIES: Joint pain, Joint Swelling Integumentary: DENIES: Rash Neurologic: DENIES: Headache Psychiatric: DENIES: Hallucinations Past Family Social History Allergies: Coded Allergies: Contrast Media (Verified Allergy, Severe, Anaphylaxis, 08/23/16) Metformin (Verified Allergy, Severe, RENAL FAILURE, 08/23/16) Penicillin (Verified Allergy, Severe, Anaphylaxis, 08/23/16) Patient reports she has tolerated Keflex on multiple occassions. PCN allergy occured as a child while having a URI. Never s/b Allergy MD to confirm. Aspirin (Verified Allergy, Intermediate, Nausea/Vomiting, 3/28/17) BLEEDING WHEN ENOUGH IS TAKEN Barium Sulfate (Verified Allergy, Intermediate, Nausea/Vomiting, 08/23/16) Lisinopril (Verified Allergy, Intermediate, Tachycardia, 08/23/16) Lemon (Verified Allergy, Unknown, Nausea/Vomiting, 08/23/16) PATIENT STATED " I AM ALLERGIC TO LEMON EVERYTIME I EAT OR DRINK SOMETHING WITH IT I GET NAUSIATED OR VOMIT" Lortab (Verified Allergy, Unknown, 08/23/16) NOT SURE IF THIS WAS THE CASE OF HER NAUSEA, HAD A FENTANYL PATCH AT THE SAME TIME Toradol (Verified Allergy, Unknown, PHYSICIAN CANCELLED DUE TO VOMITING, ) Past Medical History Left breast invasive ductal carcinoma Anemia Angina Asthma Cataracts Chronic Obstructive Pulmonary Disease Colitis Pancreatitis Diabetes Type II Gastroesophageal Reflux Disease Hypertension Migraine Osteoarthritis Osteopenia Peptic Ulcer Disease Peripheral Neuropathy Pneumonia Thyroid Disease Past Surgical History Left breast reconstruction on August 09, 2016 with AlloMax reconstruction Left breast mastectomy 03/2016 Appendectomy Breast biopsy Cholecystectomy Hernia repair Sigmoidoscopy Hysterectomy, Complete in 1980 Pancreas surgery and splenectomy Active Ordered Medications Tylenol Albuterol Elavil Lipitor Azactam Flonase Colace Neurontin Insulin Lopressor Flagyl Morphine Zofran Potassium Zoloft Vancomycin Social History Hx of tobacco use, quit 45 years ago but smoke 1ppd for 4 years She is an active drinker. No illicit drugs Physical Exam Vital Signs Vital Signs Date Time Temp Pulse Resp B/P Pulse Ox O2 Delivery O2 Flow Rate FiO2 08/24/16 15:54 97.5 67 18 114/60 93 08/24/16 12:35 98.0 82 20 155/69 94 08/24/16 08:45 97.8 78 18 123/61 95 08/24/16 05:00 82 150/70 96 08/24/16 03:00 80 134/65 94 08/24/16 02:38 95 08/24/16 02:00 80 22 131/63 94 08/24/16 01:00 78 18 125/57 96 08/24/16 00:30 64 15 100/56 94 08/24/16 00:00 92 18 148/66 96 08/23/16 22:52 98.2 84 16 186/83 96 08/23/16 20:44 98.2 112 16 164/81 95 Physical Exam GENERAL: This is a well-nourished, well-developed female, awake and alert, no apparent distress. SKIN: Cool and dry. No generalized rash or ecchymosis. HEAD: Atraumatic. Normocephalic. No temporal or scalp tenderness. EYES: [place] conjunctivae. Pupils equal round and reactive. Extraocular motions intact. No scleral icterus. No injection or drainage. ENT: Nose without bleeding or purulent drainage. Moist oral mucosa. Throat without erythema, tonsillar hypertrophy or exudate. Uvula midline. Airway patent. NECK: Trachea midline. No JVD or lymphadenopathy. Supple, nontender, no meningeal signs. CARDIOVASCULAR: Regular rate and rhythm without murmurs, gallops, or rubs. BREAST: R breast no abnormality seen. L breast has incision which is intact, but wit some redness and induration, and has 2 areas with some fluctuance. RESPIRATORY: Clear to auscultation. Breath sounds equal bilaterally. No wheezes , rales, or rhonchi. GASTROINTESTINAL: Abdomen soft, non-tender, nondistended. Scar compatible with surgical history. Bowel sounds present and normoactive. No organomegaly. No guarding. MUSCULOSKELETAL: Extremities without clubbing, cyanosis, or edema. No joint tenderness, effusion, or edema noted. No calf tenderness. Negative Homans sign bilaterally. NEUROLOGICAL: Awake and alert. Cranial nerves II through XII intact. Motor and sensory grossly within normal limits. Normal speech. PSYCH: Normal affect, calm and cooperative LINE: No evidence of infection Laboratory Laboratory Tests Test 08/23/16 08/24/16 23:50 01:05 White Blood Count 17.2 Red Blood Count 3.88 Hemoglobin 11.6 Hematocrit 35.4 Mean Corpuscular Volume 91.3 Mean Corpuscular Hemoglobin 30.0 Mean Corpuscular Hemoglobin 32.8 Concent Red Cell Distribution Width 15.7 Platelet Count 682 Mean Platelet Volume 8.9 Neutrophils (%) (Auto) 64.7 Lymphocytes (%) (Auto) 26.3 Monocytes (%) (Auto) 7.2 Eosinophils (%) (Auto) 1.0 Basophils (%) (Auto) 0.8 Neutrophils # (Auto) 11.1 Lymphocytes # (Auto) 4.5 Monocytes # (Auto) 1.2 Eosinophils # (Auto) 0.2 Basophils # (Auto) 0.1 CBC Comment DIFF FINAL Differential Comment Prothrombin Time 10.7 Prothromb Time International 1.0 Ratio Activated Partial 26.3 Thromboplast Time Sodium Level 142 Potassium Level 3.4 Chloride Level 111 Carbon Dioxide Level 24.2 Anion Gap 7 Blood Urea Nitrogen 14 Creatinine 0.72 Estimat Glomerular Filtration 81 Rate Random Glucose 117 Lactic Acid Level 1.7 Calcium Level 7.7 Magnesium Level 2.0 Total Bilirubin 0.4 Aspartate Amino Transf 12 (AST/SGOT) Alanine Aminotransferase 17 (ALT/SGPT) Alkaline Phosphatase 60 C-Reactive Protein 0.38 Total Protein 6.6 Albumin 3.1 Date/Time Procedure Status Source Growth 08/24/16 00:25 Gram Stain - Final Resulted Wound Breast 08/24/16 00:25 Wound Culture Resulted Wound Breast Pending 08/24/16 00:00 Aerobic Blood Culture Received Blood Peripheral Pending 08/24/16 00:00 Anaerobic Blood Culture Received Blood Peripheral Pending Result Diagram: 08/23/16 2350 08/24/16 0105 Imaging RADIOLOGY STUDIES/FILMS REVIEWED Chest X-Ray 08/23/16 2300 Signed Impressions: Service Date/Time: Tuesday, August 23, 2016 23:41 - CONCLUSION: 1. Mild basilar density most characteristic of atelectasis. No effusion or pneumothorax. Dennis Powell MD Assessment and Plan Assessment and Plan IMPRESSION Postoperative infection L breast, S/P reconstruction and placement of tissue seat maker Hx L mastectomy for ductal CA Apr 27, 2016 Hx MSSA abscess May 2015 DM Allergy to PCN, but tolerates Cephalosporins RECOMMENDATION OR for today by plastic surgery On empiric Abx: Vanco and Azactam Continue for now until C/S finalized May need removal of tissue seat maker Monitor progress I will follow along with you Thank you for this consultation Discussed Condition With Explained plan to patient and Franci Pichardo MD Aug 24, 2016 16:34
[2016-08-24] MEDS ORDERED: BUPIVACAINE/EPINEPHRINE 0.5% PF 30 ML VIAL ONE (19:59)
[2016-08-24] MEDS ORDERED: LIDOCAINE 1%/EPINEPHrine 1:100,000 SOLN 50 ML VIAL ONE (20:00)
[2016-08-24] MEDS ORDERED: ONDANSETRON HCL 4 MG/2 ML VIAL ONE (20:04)
[2016-08-24] MEDS ORDERED: fentaNYL CITRATE 250 MCG/5 ML AMP ONE (20:04)
[2016-08-24] MEDS ORDERED: MIDAZOLAM HCL 2 MG/2 ML VIAL ONE (20:04)
[2016-08-24] MEDS ORDERED: FAMOTIDINE 20 MG/2 ML VIAL ONE (20:10)
--- NOTE | 2016-08-24 20:33 | EKG ---
Date Performed: 08/24/2016 Time Performed: 00:07:25 PTAGE: 66 years EKG: Sinus rhythm LOW QRS VOLTAGE IN PRECORDIAL LEADS BORDERLINE ECG PREVIOUS TRACING : 09/25/2015 11.37 Compared to prior tracing no significant change DOCTOR: Kristal Bolton Interpretating Date/Time 08/24/2016 20:32:30
[2016-08-24] MEDS ORDERED: NEOMYCIN/POLYMYXIN 1 ML G.U. IRRIGANT TOPICAL ONE (20:40)
[2016-08-24] MEDS: DOCUSATE SODIUM 100 MG CAP PO SCH (21:00)
[2016-08-24] MEDS: SERTRALINE HCL 50 MG TAB PO SCH (21:00)
[2016-08-24] MEDS: AMITRIPTYLINE HCL 25 MG TAB PO SCH (21:00)
[2016-08-24] MEDS: ATORVASTATIN 40 MG TAB PO SCH (21:00)
[2016-08-24] MEDS ORDERED: DO NOT ADM ANY ANTICOAGULANT DRUGS PRN (21:23)
[2016-08-25] VITALS (9 sets, daily range): BP systolic 116–157; BP diastolic 61–91; PULSE 64–87; RESP 14–20; TEMP 96.5–98.6; O2SAT 89–97
[2016-08-25] MEDS: MORPHINE SULFATE 4 MG/ML INJ IV PUSH PRN ×4 (00:39→22:12)
[2016-08-25] MEDS: GABAPENTIN 300 MG CAP PO SCH ×4 (00:39→22:09)
[2016-08-25] MEDS: AZTREONAM INJ 2,000 MG in SODIUM CHLORIDE 0.9% INJ 100 ML IV SCH ×4 (00:39→22:50)
[2016-08-25] MEDS: SERTRALINE HCL 50 MG TAB PO SCH ×2 (00:40→22:09)
[2016-08-25] MEDS: ATORVASTATIN 40 MG TAB PO SCH ×2 (00:40→22:09)
[2016-08-25] MEDS: VANCOMYCIN INJ 1,000 MG in SODIUM CHLOR 0.9% 250 ML INJ 250 ML IV SCH ×3 (01:59→14:36)
[2016-08-25] MEDS: INSULIN ASPART SUPPLEMENTAL SCALE SQ SCH ×4 (06:21→22:28)
[2016-08-25] MEDS: DOCUSATE SODIUM 100 MG CAP PO SCH ×2 (08:08→22:09)
[2016-08-25] MEDS: metroNIDAZOLE 500 MG INJ 100 ML IV SCH ×3 (08:08→23:48)
[2016-08-25] MEDS: POTASSIUM CHLORIDE 20 MEQ CONTROLLED RELEASE TAB PO SCH (08:08)
[2016-08-25] MEDS: METOPROLOL TARTRATE 50 MG TAB PO SCH ×2 (08:13→22:09)
[2016-08-25] MEDS: SODIUM CHLOR 0.9% 1000 ML INJ 1,000 ML IV SCH (08:14)
--- NOTE | 2016-08-25 08:29 | HHI.PR ---
Subjective Remarks Pt underwent left breast exploration, debridement and removal of tissue notch grinder on 08/24/[address] Nagel. She states that she is feeling better today. Less pain Afebrile. Pts blood sugars were in the 400's this morning. Objective Vitals Vital Signs Date Time Temp Pulse Resp B/P Pulse Ox O2 Delivery O2 Flow Rate FiO2 08/25/16 08:11 85 132/78 95 08/25/16 08:04 97.9 80 14 118/62 89 08/25/16 04:43 98.6 80 18 116/63 90 08/25/16 00:33 97.7 81 18 121/64 96 08/24/16 22:45 97.9 70 14 139/76 97 Nasal Cannula 3 08/24/16 22:36 67 14 141/76 97 Nasal Cannula 3 08/24/16 21:22 98.0 74 15 147/81 97 Nasal Cannula 3 08/24/16 15:54 97.5 67 18 114/60 93 08/24/16 12:35 98.0 82 20 155/69 94 08/24/16 08:45 97.8 78 18 123/61 95 08/24/16 08/24/16 08/25/16 15:00 23:00 07:00 Intake Total 800 ml Output Total 90 ml Balance 710 ml Intake Oral 0 ml Other 800 ml Output Urine Total 0 ml Drainage Total 80 ml Estimated Blood Loss 10 ml Result Diagram: 08/23/16 2350 08/25/16 0618 Other Results Laboratory Tests Test 08/23/16 08/24/16 08/25/16 23:50 01:05 06:18 White Blood Count 17.2 TH/MM3 Red Blood Count 3.88 MIL/MM3 Hemoglobin 11.6 GM/DL Hematocrit 35.4 % Mean Corpuscular Volume 91.3 FL Mean Corpuscular Hemoglobin 30.0 PG Mean Corpuscular Hemoglobin 32.8 % Concent Red Cell Distribution Width 15.7 % Platelet Count 682 TH/MM3 Mean Platelet Volume 8.9 FL Neutrophils (%) (Auto) 64.7 % Lymphocytes (%) (Auto) 26.3 % Monocytes (%) (Auto) 7.2 % Eosinophils (%) (Auto) 1.0 % Basophils (%) (Auto) 0.8 % Neutrophils # (Auto) 11.1 TH/MM3 Lymphocytes # (Auto) 4.5 TH/MM3 Monocytes # (Auto) 1.2 TH/MM3 Eosinophils # (Auto) 0.2 TH/MM3 Basophils # (Auto) 0.1 TH/MM3 CBC Comment DIFF FINAL Differential Comment Prothrombin Time 10.7 SEC Prothromb Time International 1.0 RATIO Ratio Activated Partial 26.3 SEC Thromboplast Time Sodium Level 142 MEQ/L Potassium Level 3.4 MEQ/L Chloride Level 111 MEQ/L Carbon Dioxide Level 24.2 MEQ/L Anion Gap 7 MEQ/L Blood Urea Nitrogen 14 MG/DL Creatinine 0.72 MG/DL Estimat Glomerular Filtration 81 ML/MIN Rate Random Glucose 117 MG/DL 481 MG/DL Lactic Acid Level 1.7 mmol/L Calcium Level 7.7 MG/DL Magnesium Level 2.0 MG/DL Total Bilirubin 0.4 MG/DL Aspartate Amino Transf 12 U/L (AST/SGOT) Alanine Aminotransferase 17 U/L (ALT/SGPT) Alkaline Phosphatase 60 U/L C-Reactive Protein 0.38 MG/DL Total Protein 6.6 GM/DL Albumin 3.1 GM/DL Imaging Last Impressions Chest X-Ray 08/23/16 2300 Signed Impressions: Service Date/Time: Tuesday, August 23, 2016 23:41 - CONCLUSION: 1. Mild basilar density most characteristic of atelectasis. No effusion or pneumothorax. Dennis Powell MD Objective Remarks General: NAD, AAOx3 Chest: CTA, left breast bandages are c/d/i, drain in place. Cardiac: Regular Abd: +BS, soft ND/NT Ext: No edema A/P Problem List: (1) Postoperative infection of breast incision Status: Acute Plan: - Pt with hx of left breast invasive ductal carcinoma s/p left breast mastectomy in 03/2016 - Pt underwent left breast reconstruction with tissue notch grinder on August 09, 2016. She reports that she followed up with Dr. Nagel for reexamination 1 week ago and was noted to have redness and swelling to the left breast suspicious for postoperative infection. She was started on Bactrim. She reports that this past weekend she began to note yellow drainage from the left breast, but she thought things were improving up until yesterday when the swelling, redness, pain increased and then she developed drainage from the wound again. - Pt was given Aztreonam, Vancomycin and Flagyl in the ED - Blood cultures (08/24) are pending. - Pt has been afebrile. - WBC count was over 17,000 at admission. - Dr. Nagel is following, pt underwent left breast exploration, debridement and removal of tissue notch grinder on 08/24/[address] Nagel. - Appreciate ID consultation - Cont. Aztreonam, Vancomycin and Flagyl until cultures have resulted. - Monitor labs - Supportive care - DVT prophylaxis with SCDs for now. (2) DM (diabetes mellitus) Status: Chronic Plan: - NovoLog SSI - Add Levemir 15 units BID - Accu checks (3) HTN (hypertension) Status: Chronic Plan: - BP stable on Metoprolol - Hold Losartan and Amlodipine and monitor. (4) COPD (chronic obstructive pulmonary disease) Status: Acute Plan: - Duonebs PRN (5) Depression Status: Chronic Plan: - Resume home meds Assessment and Plan Patient examined. Assessment and plan formulated with Mariama Mclaughlin PA-C. I agree with the above. Problem Qualifiers (1) Postoperative infection of breast incision: Qualified Code: T81.4XXA - Postoperative infection of breast incision, initial encounter (2) DM (diabetes mellitus): Mariama Mclaughlin Aug 25, 2016 08:29 Azael Ryan DO Aug 25, 2016 22:56
[2016-08-25] MEDS: SODIUM CHLORIDE 0.9% FLUSH 10 ML FLUSH IV FLUSH SCH ×2 (09:00→22:10)
[2016-08-25] MEDS: INSULIN DETEMIR 100 UNITS/ML VIAL SQ SCH ×2 (10:13→22:28)
[2016-08-25] MEDS: FLUTICASONE PROPIONATE 50 MCG/ACT 16 GM NASAL SPRAY EACH NARE SCH (10:24)
--- NOTE | 2016-08-25 10:43 | PD.PLAS.PN ---
Subjective Remarks Patient feeling much better No fever Dressing dry, clean, to be changed by nursing later Awaiting culture results/ Will follow. Vital Signs Date Time Temp Pulse Resp B/P Pulse Ox O2 Delivery O2 Flow Rate FiO2 08/25/16 08:11 85 132/78 95 08/25/16 08:04 97.9 80 14 118/62 89 08/25/16 04:43 98.6 80 18 116/63 90 08/25/16 00:33 97.7 81 18 121/64 96 08/24/16 22:45 97.9 70 14 139/76 97 Nasal Cannula 3 08/24/16 22:36 67 14 141/76 97 Nasal Cannula 3 08/24/16 21:22 98.0 74 15 147/81 97 Nasal Cannula 3 08/24/16 15:54 97.5 67 18 114/60 93 08/24/16 12:35 98.0 82 20 155/69 94 I/O 08/24/16 08/24/16 08/24/16 08/25/16 08/25/16 08/25/16 07:00 15:00 23:00 07:00 15:00 23:00 Intake Total 800 ml 2296 ml Output Total 90 ml 50 ml Balance 710 ml 2246 ml Intake Oral 0 ml IV Total 2296 ml Other 800 ml Output Urine Total 0 ml Drainage Total 80 ml 50 ml Estimated Blood Loss 10 ml Laboratory Tests Test 08/25/16 06:18 Random Glucose 481 Date/Time Procedure Status Source Growth 08/24/16 21:14 Gram Stain - Final Resulted Wound Breast 08/24/16 21:14 Wound Culture Resulted Wound Breast Pending 08/24/16 21:14 Fungal Smear - Final Resulted Wound Breast NO FUNGAL ELEMENTS SEEN. 08/24/16 21:14 Fungal Culture Resulted Wound Breast Pending 08/24/16 21:14 Acid Fast Stain Received Wound Breast Pending 08/24/16 21:14 Mycobacterial Culture Received Wound Breast Pending 08/24/16 00:00 Aerobic Blood Culture Received Blood Peripheral Pending 08/24/16 00:00 Anaerobic Blood Culture Received Blood Peripheral Pending Result Diagram: 08/23/16 2350 08/25/16 0618 David Nagel MD Aug 25, 2016 10:43
--- NOTE | 2016-08-25 12:52 | HHI.IDPN ---
Subjective Subjective Remarks Notes reviewed No fever Had OR last night - debridement and removal tissue inhalation therapy aide C/S still pending Antibiotics Vanco Azactam Lines PIV Past Medical History Reviewed Allergies: Coded Allergies: Contrast Media (Verified Allergy, Severe, Anaphylaxis, 08/23/16) Metformin (Verified Allergy, Severe, RENAL FAILURE, 08/23/16) Penicillin (Verified Allergy, Severe, Anaphylaxis, 08/23/16) Patient reports she has tolerated Keflex on multiple occassions. PCN allergy occured as a child while having a URI. Never s/b Allergy MD to confirm. Aspirin (Verified Allergy, Intermediate, Nausea/Vomiting, 08/23/16) BLEEDING WHEN ENOUGH IS TAKEN Barium Sulfate (Verified Allergy, Intermediate, Nausea/Vomiting, 08/23/16) Lisinopril (Verified Allergy, Intermediate, Tachycardia, 08/23/16) Lemon (Verified Allergy, Unknown, Nausea/Vomiting, 08/23/16) PATIENT STATED " I AM ALLERGIC TO LEMON EVERYTIME I EAT OR DRINK SOMETHING WITH IT I GET NAUSIATED OR VOMIT" Lortab (Verified Allergy, Unknown, 08/23/16) NOT SURE IF THIS WAS THE CASE OF HER NAUSEA, HAD A FENTANYL PATCH AT THE SAME TIME Toradol (Verified Allergy, Unknown, PHYSICIAN CANCELLED DUE TO VOMITING, ) Objective . Vital Signs Date Time Temp Pulse Resp B/P Pulse Ox O2 Delivery O2 Flow Rate FiO2 08/25/16 11:34 98.1 64 20 119/61 96 08/25/16 08:11 85 132/78 95 08/25/16 08:04 97.9 80 14 118/62 89 08/25/16 04:43 98.6 80 18 116/63 90 08/25/16 00:33 97.7 81 18 121/64 96 08/24/16 22:45 97.9 70 14 139/76 97 Nasal Cannula 3 08/24/16 22:36 67 14 141/76 97 Nasal Cannula 3 08/24/16 21:22 98.0 74 15 147/81 97 Nasal Cannula 3 08/24/16 15:54 97.5 67 18 114/60 93 08/24/16 08/24/16 08/25/16 15:00 23:00 07:00 Intake Total 800 ml Output Total 90 ml Balance 710 ml Intake Oral 0 ml Other 800 ml Output Urine Total 0 ml Drainage Total 80 ml Estimated Blood Loss 10 ml . Laboratory Tests Test 08/23/16 23:50 White Blood Count 17.2 TH/MM3 Red Blood Count 3.88 MIL/MM3 Hemoglobin 11.6 GM/DL Hematocrit 35.4 % Mean Corpuscular Volume 91.3 FL Mean Corpuscular Hemoglobin 30.0 PG Mean Corpuscular Hemoglobin 32.8 % Concent Red Cell Distribution Width 15.7 % Platelet Count 682 TH/MM3 Mean Platelet Volume 8.9 FL Neutrophils (%) (Auto) 64.7 % Lymphocytes (%) (Auto) 26.3 % Monocytes (%) (Auto) 7.2 % Eosinophils (%) (Auto) 1.0 % Basophils (%) (Auto) 0.8 % Neutrophils # (Auto) 11.1 TH/MM3 Lymphocytes # (Auto) 4.5 TH/MM3 Monocytes # (Auto) 1.2 TH/MM3 Eosinophils # (Auto) 0.2 TH/MM3 Basophils # (Auto) 0.1 TH/MM3 CBC Comment DIFF FINAL Differential Comment Laboratory Tests Test 08/24/16 08/25/16 01:05 06:18 Sodium Level 142 MEQ/L Potassium Level 3.4 MEQ/L Chloride Level 111 MEQ/L Carbon Dioxide Level 24.2 MEQ/L Anion Gap 7 MEQ/L Blood Urea Nitrogen 14 MG/DL Creatinine 0.72 MG/DL Estimat Glomerular Filtration 81 ML/MIN Rate Random Glucose 117 MG/DL 481 MG/DL Lactic Acid Level 1.7 mmol/L Calcium Level 7.7 MG/DL Magnesium Level 2.0 MG/DL Total Bilirubin 0.4 MG/DL Aspartate Amino Transf 12 U/L (AST/SGOT) Alanine Aminotransferase 17 U/L (ALT/SGPT) Alkaline Phosphatase 60 U/L C-Reactive Protein 0.38 MG/DL Total Protein 6.6 GM/DL Albumin 3.1 GM/DL Microbiology Date/Time Procedure Status Source Growth 08/23/16 23:45 Aerobic Blood Culture - Preliminary Resulted Blood Peripheral NO GROWTH IN 1 DAY 08/23/16 23:45 Anaerobic Blood Culture - Preliminary Resulted Blood Peripheral NO GROWTH IN 1 DAY 08/24/16 00:00 Aerobic Blood Culture - Preliminary Resulted Blood Peripheral NO GROWTH IN 1 DAY 08/24/16 00:00 Anaerobic Blood Culture - Preliminary Resulted Blood Peripheral NO GROWTH IN 1 DAY 08/24/16 00:25 Gram Stain - Final Resulted Wound Breast 08/24/16 00:25 Wound Culture Resulted Wound Breast Pending 08/24/16 21:14 Gram Stain - Final Resulted Wound Breast 08/24/16 21:14 Wound Culture Resulted Wound Breast Pending 08/24/16 21:14 Acid Fast Stain Received Wound Breast Pending 08/24/16 21:14 Mycobacterial Culture Received Wound Breast Pending 08/24/16 21:14 Fungal Smear - Final Resulted Wound Breast NO FUNGAL ELEMENTS SEEN. 08/24/16 21:14 Fungal Culture Resulted Wound Breast Pending Imaging Chest X-Ray 08/23/16 2300 Signed Impressions: Service Date/Time: Tuesday, August 23, 2016 23:41 - CONCLUSION: 1. Mild basilar density most characteristic of atelectasis. No effusion or pneumothorax. Dennis Powell MD Physical Exam GENERAL: awake and alert, no apparent distress. SKIN: Cool and dry. No generalized rash or ecchymosis. HEENT: [place] conjunctivae. No scleral icterus. No injection or drainage. Moist oral mucosa. NECK: Trachea midline. No JVD or lymphadenopathy. Supple, nontender, no meningeal signs. CARDIOVASCULAR: Regular rate and rhythm without murmurs, gallops, or rubs. BREAST: R breast no abnormality seen. L breast has incision with some mild redness, has EUFEMIA drain in place that has serosanguineous fluid. RESPIRATORY: Clear to auscultation. Breath sounds equal bilaterally. No wheezes , rales, or rhonchi. GASTROINTESTINAL: Abdomen soft, non-tender, nondistended. Scar compatible with surgical history. Bowel sounds present and normoactive. No organomegaly. No guarding. MUSCULOSKELETAL: Extremities without clubbing, cyanosis, or edema. No calf tenderness. NEUROLOGICAL: Non-focal. PSYCH: Normal affect, calm and cooperative LINE: No evidence of infection Assessment & Plan Remarks IMPRESSION Postoperative infection L breast, S/P reconstruction and placement of tissue inhalation therapy aide Hx L mastectomy for ductal CA Apr 27, 2016 Hx MSSA abscess May 2015 DM Allergy to PCN, but tolerates Cephalosporins RECOMMENDATION Continue empiric Abx: Vanco and Azactam Follow C/S and adjust Abx Monitor progress Explained plan to patient Franci Pichardo MD Aug 25, 2016 12:52
[2016-08-25] MEDS: NYSTATIN 100,000 U/GM PWD 15 GM BTL TOPICAL SCH ×2 (18:10→22:49)
[2016-08-25] MEDS: AMITRIPTYLINE HCL 25 MG TAB PO SCH (22:49)
[2016-08-26] VITALS (7 sets, daily range): BP systolic 100–149; BP diastolic 63–89; PULSE 60–72; RESP 12–18; TEMP 95.7–97.8; O2SAT 93–97
[2016-08-26] MEDS: VANCOMYCIN INJ 1,000 MG in SODIUM CHLOR 0.9% 250 ML INJ 250 ML IV SCH ×2 (00:46→12:56)
[2016-08-26] MEDS: NYSTATIN 100,000 U/GM PWD 15 GM BTL TOPICAL SCH ×3 (05:59→21:08)
[2016-08-26] MEDS: INSULIN ASPART SUPPLEMENTAL SCALE SQ SCH ×4 (06:00→21:43)
[2016-08-26] MEDS: MORPHINE SULFATE 4 MG/ML INJ IV PUSH PRN ×5 (06:00→21:07)
[2016-08-26 07:05] LABS: AUTOMATED NEUTROPHIL # 10.5 TH/MM3 (1.8-7.7); BASOPHIL # 0.2 TH/MM3 (0-0.2); BASOPHIL % 0.9 % (0.0-2.0); EOSINOPHIL # 0.2 TH/MM3 (0-0.4); HEMATOCRIT 32.7 % (35.0-46.0); LYMPH % 33.7 % (9.0-44.0); LYMPHOCYTE # 6.2 TH/MM3 (1.0-4.8); MEAN CORPUSCULAR HEMOGLOBIN 30.2 PG (27.0-34.0); MEAN CORPUSCULAR HGB CONC 33.2 % (32.0-36.0); MONO % 7.6 % (0.0-8.0); NEUT % 56.8 % (16.0-70.0); PLATELET COUNT 702 TH/MM3 (150-450); RED BLOOD COUNT 3.59 MIL/MM3 (4.00-5.30); RED CELL DISTRIBUTION WIDTH 16.1 % (11.6-17.2); WHITE BLOOD COUNT 18.5 TH/MM3 (4.0-11.0)
[2016-08-26 07:10] LABS: HEMO FLAGS AUTO DIFF
[2016-08-26 07:46] LABS: BICARBONATE 25.8 MEQ/L (21.0-32.0); MAGNESIUM 1.9 MG/DL (1.5-2.5)
[2016-08-26] MEDS: DOCUSATE SODIUM 100 MG CAP PO SCH ×2 (09:00→21:00)
[2016-08-26 09:06] LABS: EOSINOPHILS 2 % (0-4); NEUTROPHIL # MANUAL DIFF 10.4 TH/MM3 (1.8-7.7); POLYS (SEG NEUTROPHILS) 56 % (16-70); WBC DIFF SAMPLE 100
[2016-08-26 09:07] LABS: PLATELET ESTIMATE SMEAR HIGH (NORMAL); PLATELET MORPHOLOGY NORMAL (NORMAL); SCAN/DIFF FINAL DIFF MANUAL
[2016-08-26] MEDS: METOPROLOL TARTRATE 50 MG TAB PO SCH ×2 (09:31→21:06)
[2016-08-26] MEDS: GABAPENTIN 300 MG CAP PO SCH ×3 (09:31→21:06)
[2016-08-26] MEDS: POTASSIUM CHLORIDE 20 MEQ CONTROLLED RELEASE TAB PO SCH (09:31)
[2016-08-26] MEDS: AZTREONAM INJ 2,000 MG in SODIUM CHLORIDE 0.9% INJ 100 ML IV SCH ×2 (09:31→15:50)
[2016-08-26] MEDS: SODIUM CHLORIDE 0.9% FLUSH 10 ML FLUSH IV FLUSH SCH ×2 (09:32→21:18)
[2016-08-26] MEDS: INSULIN DETEMIR 100 UNITS/ML VIAL SQ SCH ×2 (09:32→21:05)
[2016-08-26] MEDS: metroNIDAZOLE 500 MG INJ 100 ML IV SCH ×2 (10:43→16:55)
--- NOTE | 2016-08-26 11:20 | HHI.PR ---
Subjective Remarks Pt overall is feeling well. She does have more pain today than yesterday at the surgical site but the erythema and swelling is improving. She has been afebrile. Objective Vitals Vital Signs Date Time Temp Pulse Resp B/P Pulse Ox O2 Delivery O2 Flow Rate FiO2 08/26/16 08:36 97 21 08/26/16 08:00 95.7 65 12 109/64 97 08/26/16 04:00 97.2 65 17 105/68 93 08/26/16 00:00 97.0 66 18 149/89 96 08/25/16 23:12 18 08/25/16 21:20 96.5 87 18 157/91 95 08/25/16 19:20 98.0 86 20 123/63 97 08/25/16 16:56 94 21 08/25/16 15:47 98.0 71 20 125/65 97 08/25/16 11:34 98.1 64 20 119/61 96 08/25/16 08/25/16 08/26/16 15:00 23:00 07:00 Intake Total 2296 ml 300 ml Output Total 100 ml 25 ml Balance 2196 ml 275 ml IV Total 2296 ml 300 ml Drainage Total 100 ml 25 ml # Voids 3 Result Diagram: 08/26/16 0540 08/26/16 0540 Other Results Laboratory Tests Test 08/25/16 08/26/16 06:18 05:40 Random Glucose 481 MG/DL 120 MG/DL White Blood Count 18.5 TH/MM3 Red Blood Count 3.59 MIL/MM3 Hemoglobin 10.8 GM/DL Hematocrit 32.7 % Mean Corpuscular Volume 91.0 FL Mean Corpuscular Hemoglobin 30.2 PG Mean Corpuscular Hemoglobin 33.2 % Concent Red Cell Distribution Width 16.1 % Platelet Count 702 TH/MM3 Mean Platelet Volume 8.9 FL Neutrophils (%) (Auto) 56.8 % Lymphocytes (%) (Auto) 33.7 % Monocytes (%) (Auto) 7.6 % Eosinophils (%) (Auto) 1.0 % Basophils (%) (Auto) 0.9 % Neutrophils # (Auto) 10.5 TH/MM3 Lymphocytes # (Auto) 6.2 TH/MM3 Monocytes # (Auto) 1.4 TH/MM3 Eosinophils # (Auto) 0.2 TH/MM3 Basophils # (Auto) 0.2 TH/MM3 CBC Comment AUTO DIFF Differential Total Cells 100 Counted Neutrophils % (Manual) 56 % Lymphocytes % 37 % Monocytes % 5 % Eosinophils % 2 % Neutrophils # (Manual) 10.4 TH/MM3 Differential Comment FINAL DIFF MANUAL Platelet Estimate HIGH Platelet Morphology Comment NORMAL Red Cell Morphology Comment NORMAL Sodium Level 141 MEQ/L Potassium Level 4.0 MEQ/L Chloride Level 108 MEQ/L Carbon Dioxide Level 25.8 MEQ/L Anion Gap 7 MEQ/L Blood Urea Nitrogen 22 MG/DL Creatinine 1.54 MG/DL Estimat Glomerular Filtration 34 ML/MIN Rate Calcium Level 8.7 MG/DL Magnesium Level 1.9 MG/DL Imaging Last Impressions Chest X-Ray 08/23/16 2300 Signed Impressions: Service Date/Time: Tuesday, August 23, 2016 23:41 - CONCLUSION: 1. Mild basilar density most characteristic of atelectasis. No effusion or pneumothorax. Dennis Powell MD Objective Remarks General: NAD, AAOx3 Chest: CTA, left breast incision with steristrips in place, less erythema or swelling, drain in place. Cardiac: Regular Abd: +BS, soft ND/NT Ext: No edema A/P Problem List: (1) Postoperative infection of breast incision Status: Acute Plan: - Pt with hx of left breast invasive ductal carcinoma s/p left breast mastectomy in 03/2016 - Pt underwent left breast reconstruction with tissue trade promotion analyst on August 09, 2016. She reports that she followed up with Dr. Nagel for reexamination 1 week ago and was noted to have redness and swelling to the left breast suspicious for postoperative infection. She was started on Bactrim. She reports that this past weekend she began to note yellow drainage from the left breast, but she thought things were improving up until yesterday when the swelling, redness, pain increased and then she developed drainage from the wound again. - Pt was given Aztreonam, Vancomycin and Flagyl in the ED - Blood cultures (08/24) with no growth to date. - WBC count was over 17,000 (08/24) -- 18.5 (3.31), but pt has been afebrile. - Dr. Nagel is following, pt underwent left breast exploration, debridement and removal of tissue trade promotion analyst on 08/24/[address] Nagel. - Cultures are pending. - Appreciate ID consultation - Cont. Aztreonam, Vancomycin and Flagyl until cultures have resulted. - Monitor labs - Supportive care - DVT prophylaxis with SCDs for now. (2) DM (diabetes mellitus) Status: Chronic Plan: - Blood sugars are better today - NovoLog SSI - Cont. Levemir 15 units BID - Accu checks (3) HTN (hypertension) Status: Chronic Plan: - BP stable on Metoprolol - Hold Losartan and Amlodipine and monitor. Add back as BP allows (4) COPD (chronic obstructive pulmonary disease) Status: Acute Plan: - Duonebs PRN (5) Depression Status: Chronic Plan: - Cont. home meds Assessment and Plan Patient examined. Assessment and plan formulated with Mariama Mclaughlin PA-C. I agree with the above. Problem Qualifiers (1) Postoperative infection of breast incision: Qualified Code: T81.4XXA - Postoperative infection of breast incision, initial encounter (2) DM (diabetes mellitus): Mariama Mclaughlin Aug 26, 2016 11:20 Azael Ryan DO Aug 27, 2016 12:57
--- NOTE | 2016-08-26 12:23 | PD.PLAS.PN ---
Subjective Remarks Patient doing well. Feeling better. Had some more pain on the left breast/chest area No fever. Eating well Left breast dressing removed - suture line clean. No redness at all on the flap Edema mild. Not warm to touch as compared to the normal side. Drain site clean, drainage is turning serous now. WBC count was up - 16452 but neutrophil % is down. Cultures - both from the ER and from the OR are still negative and no organisms on the Gram stains. Not clear as to what may have caused the profuse mucoid collection in the pocket. Vital Signs Date Time Temp Pulse Resp B/P Pulse Ox O2 Delivery O2 Flow Rate FiO2 08/26/16 08:36 97 21 08/26/16 08:00 95.7 65 12 109/64 97 08/26/16 04:00 97.2 65 17 105/68 93 08/26/16 00:00 97.0 66 18 149/89 96 08/25/16 23:12 18 08/25/16 21:20 96.5 87 18 157/91 95 08/25/16 19:20 98.0 86 20 123/63 97 08/25/16 16:56 94 21 08/25/16 15:47 98.0 71 20 125/65 97 I/O 08/25/16 08/25/16 08/25/16 08/26/16 08/26/16 08/26/16 07:00 15:00 23:00 07:00 15:00 23:00 Intake Total 2296 ml 300 ml Output Total 100 ml 25 ml Balance 2196 ml 275 ml IV Total 2296 ml 300 ml Drainage Total 100 ml 25 ml # Voids 3 Laboratory Tests Test 08/26/16 05:40 White Blood Count 18.5 Red Blood Count 3.59 Hemoglobin 10.8 Hematocrit 32.7 Mean Corpuscular Volume 91.0 Mean Corpuscular Hemoglobin 30.2 Mean Corpuscular Hemoglobin 33.2 Concent Red Cell Distribution Width 16.1 Platelet Count 702 Mean Platelet Volume 8.9 Neutrophils (%) (Auto) 56.8 Lymphocytes (%) (Auto) 33.7 Monocytes (%) (Auto) 7.6 Eosinophils (%) (Auto) 1.0 Basophils (%) (Auto) 0.9 Neutrophils # (Auto) 10.5 Lymphocytes # (Auto) 6.2 Monocytes # (Auto) 1.4 Eosinophils # (Auto) 0.2 Basophils # (Auto) 0.2 CBC Comment AUTO DIFF Differential Total Cells 100 Counted Neutrophils % (Manual) 56 Lymphocytes % 37 Monocytes % 5 Eosinophils % 2 Neutrophils # (Manual) 10.4 Differential Comment FINAL DIFF MANUAL Platelet Estimate HIGH Platelet Morphology Comment NORMAL Red Cell Morphology Comment NORMAL Sodium Level 141 Potassium Level 4.0 Chloride Level 108 Carbon Dioxide Level 25.8 Anion Gap 7 Blood Urea Nitrogen 22 Creatinine 1.54 Estimat Glomerular Filtration 34 Rate Random Glucose 120 Calcium Level 8.7 Magnesium Level 1.9 Date/Time Procedure Status Source Growth 08/24/16 21:14 Gram Stain - Final Resulted Wound Breast 08/24/16 21:14 Wound Culture - Preliminary Resulted Wound Breast NO GROWTH IN 48 HOURS. 08/24/16 21:14 Fungal Smear - Final Resulted Wound Breast NO FUNGAL ELEMENTS SEEN. 08/24/16 21:14 Fungal Culture Resulted Wound Breast Pending 08/24/16 21:14 Acid Fast Stain Received Wound Breast Pending 08/24/16 21:14 Mycobacterial Culture Received Wound Breast Pending 08/24/16 00:00 Aerobic Blood Culture - Preliminary Resulted Blood Peripheral NO GROWTH IN 2 DAYS 08/24/16 00:00 Anaerobic Blood Culture - Preliminary Resulted Blood Peripheral NO GROWTH IN 2 DAYS Result Diagram: 08/26/16 0540 08/26/16 0540 David Nagel MD Aug 26, 2016 12:23
--- NOTE | 2016-08-26 16:10 | HHI.IDPN ---
Subjective Subjective Remarks Notes reviewed No fever C/S from OR negative so far Plastic surgery notes reviewed Antibiotics Vanco Azactam Lines PIV Past Medical History Reviewed Allergies: Coded Allergies: Contrast Media (Verified Allergy, Severe, Anaphylaxis, 08/23/16) Metformin (Verified Allergy, Severe, RENAL FAILURE, 08/23/16) Penicillin (Verified Allergy, Severe, Anaphylaxis, 08/23/16) Patient reports she has tolerated Keflex on multiple occassions. PCN allergy occured as a child while having a URI. Never s/b Allergy MD to confirm. Aspirin (Verified Allergy, Intermediate, Nausea/Vomiting, 08/23/16) BLEEDING WHEN ENOUGH IS TAKEN Barium Sulfate (Verified Allergy, Intermediate, Nausea/Vomiting, 08/23/16) Lisinopril (Verified Allergy, Intermediate, Tachycardia, 08/23/16) Lemon (Verified Allergy, Unknown, Nausea/Vomiting, 08/23/16) PATIENT STATED " I AM ALLERGIC TO LEMON EVERYTIME I EAT OR DRINK SOMETHING WITH IT I GET NAUSIATED OR VOMIT" Lortab (Verified Allergy, Unknown, 08/23/16) NOT SURE IF THIS WAS THE CASE OF HER NAUSEA, HAD A FENTANYL PATCH AT THE SAME TIME Toradol (Verified Allergy, Unknown, PHYSICIAN CANCELLED DUE TO VOMITING, ) Objective . Vital Signs Date Time Temp Pulse Resp B/P Pulse Ox O2 Delivery O2 Flow Rate FiO2 08/26/16 12:00 97.8 63 16 100/63 95 08/26/16 08:36 97 21 08/26/16 08:00 95.7 65 12 109/64 97 08/26/16 04:00 97.2 65 17 105/68 93 08/26/16 00:00 97.0 66 18 149/89 96 08/25/16 23:12 18 08/25/16 21:20 96.5 87 18 157/91 95 08/25/16 19:20 98.0 86 20 123/63 97 08/25/16 16:56 94 21 08/25/16 08/25/16 08/26/16 15:00 23:00 07:00 Intake Total 2296 ml 300 ml Output Total 100 ml 25 ml Balance 2196 ml 275 ml IV Total 2296 ml 300 ml Drainage Total 100 ml 25 ml # Voids 3 . Laboratory Tests Test 08/26/16 05:40 White Blood Count 18.5 TH/MM3 Red Blood Count 3.59 MIL/MM3 Hemoglobin 10.8 GM/DL Hematocrit 32.7 % Mean Corpuscular Volume 91.0 FL Mean Corpuscular Hemoglobin 30.2 PG Mean Corpuscular Hemoglobin 33.2 % Concent Red Cell Distribution Width 16.1 % Platelet Count 702 TH/MM3 Mean Platelet Volume 8.9 FL Neutrophils (%) (Auto) 56.8 % Lymphocytes (%) (Auto) 33.7 % Monocytes (%) (Auto) 7.6 % Eosinophils (%) (Auto) 1.0 % Basophils (%) (Auto) 0.9 % Neutrophils # (Auto) 10.5 TH/MM3 Lymphocytes # (Auto) 6.2 TH/MM3 Monocytes # (Auto) 1.4 TH/MM3 Eosinophils # (Auto) 0.2 TH/MM3 Basophils # (Auto) 0.2 TH/MM3 CBC Comment AUTO DIFF Differential Total Cells 100 Counted Neutrophils % (Manual) 56 % Lymphocytes % 37 % Monocytes % 5 % Eosinophils % 2 % Neutrophils # (Manual) 10.4 TH/MM3 Differential Comment FINAL DIFF MANUAL Platelet Estimate HIGH Platelet Morphology Comment NORMAL Red Cell Morphology Comment NORMAL Laboratory Tests Test 08/25/16 08/26/16 06:18 05:40 Random Glucose 481 MG/DL 120 MG/DL Sodium Level 141 MEQ/L Potassium Level 4.0 MEQ/L Chloride Level 108 MEQ/L Carbon Dioxide Level 25.8 MEQ/L Anion Gap 7 MEQ/L Blood Urea Nitrogen 22 MG/DL Creatinine 1.54 MG/DL Estimat Glomerular Filtration 34 ML/MIN Rate Calcium Level 8.7 MG/DL Magnesium Level 1.9 MG/DL Microbiology Date/Time Procedure Status Source Growth 08/23/16 23:45 Aerobic Blood Culture - Preliminary Resulted Blood Peripheral NO GROWTH IN 2 DAYS 08/23/16 23:45 Anaerobic Blood Culture - Preliminary Resulted Blood Peripheral NO GROWTH IN 2 DAYS 08/24/16 00:00 Aerobic Blood Culture - Preliminary Resulted Blood Peripheral NO GROWTH IN 2 DAYS 08/24/16 00:00 Anaerobic Blood Culture - Preliminary Resulted Blood Peripheral NO GROWTH IN 2 DAYS 08/24/16 00:25 Gram Stain - Final Resulted Wound Breast 08/24/16 00:25 Wound Culture - Preliminary Resulted Wound Breast RARE GROWTH NORMAL SKIN TERRIE... 08/24/16 21:14 Gram Stain - Final Resulted Wound Breast 08/24/16 21:14 Wound Culture - Preliminary Resulted Wound Breast NO GROWTH IN 48 HOURS. 08/24/16 21:14 Acid Fast Stain - Final Resulted Wound Breast NO ACID FAST BACILLI SEEN 08/24/16 21:14 Mycobacterial Culture Resulted Wound Breast Pending 08/24/16 21:14 Fungal Smear - Final Resulted Wound Breast NO FUNGAL ELEMENTS SEEN. 08/24/16 21:14 Fungal Culture Resulted Wound Breast Pending Imaging Chest X-Ray 08/23/16 2300 Signed Impressions: Service Date/Time: Tuesday, August 23, 2016 23:41 - CONCLUSION: 1. Mild basilar density most characteristic of atelectasis. No effusion or pneumothorax. Dennis Powell MD Physical Exam GENERAL: awakens easily, NAD SKIN: Cool and dry. No generalized rash or ecchymosis. HEENT: [place] conjunctivae. No scleral icterus. No injection or drainage. Moist oral mucosa. NECK: Supple, nontender, no meningeal signs. CARDIOVASCULAR: Regular rate and rhythm without murmurs, gallops, or rubs. BREAST: R breast no abnormality seen. L breast has incision with min redness RESPIRATORY: Clear to auscultation. Breath sounds equal bilaterally. No wheezes , rales, or rhonchi. GASTROINTESTINAL: Abdomen soft, non-tender, nondistended. Scar compatible with surgical history. No organomegaly. No guarding. MUSCULOSKELETAL: Extremities without clubbing, cyanosis, or edema. No calf tenderness. NEUROLOGICAL: Non-focal. PSYCH: Normal affect, calm and cooperative LINE: No evidence of infection Assessment & Plan Remarks IMPRESSION Postoperative infection L breast, S/P reconstruction and placement of tissue mold changer - S/P debridement and removal of mold changer, C/S negative Hx L mastectomy for ductal CA Apr 27, 2016 Hx MSSA abscess May 2015 DM Allergy to PCN, but tolerates Cephalosporins RECOMMENDATION Continue empiric Abx: Vanco and Azactam If C/S negative, Clinda and Levaquin x 14 days Follow C/S and adjust Abx Monitor progress Franci Pichardo MD Aug 26, 2016 16:10
[2016-08-26] MEDS: FLUTICASONE PROPIONATE 50 MCG/ACT 16 GM NASAL SPRAY EACH NARE SCH (16:54)
[2016-08-26] MEDS: ATORVASTATIN 40 MG TAB PO SCH (21:06)
[2016-08-26] MEDS: SERTRALINE HCL 50 MG TAB PO SCH (21:06)
[2016-08-26] MEDS: AMITRIPTYLINE HCL 25 MG TAB PO SCH (21:08)
[2016-08-27] VITALS: BP 146/84; PULSE 62; RESP 17; TEMP 96.2; O2SAT 95
[2016-08-27] MEDS: metroNIDAZOLE 500 MG INJ 100 ML IV SCH ×2 (00:28→09:45)
[2016-08-27] MEDS: AZTREONAM INJ 2,000 MG in SODIUM CHLORIDE 0.9% INJ 100 ML IV SCH ×2 (00:28→08:21)
[2016-08-27] MEDS: VANCOMYCIN INJ 1,000 MG in SODIUM CHLOR 0.9% 250 ML INJ 250 ML IV SCH ×2 (00:28→11:22)
[2016-08-27] MEDS: MORPHINE SULFATE 4 MG/ML INJ IV PUSH PRN ×4 (00:44→13:21)
[2016-08-27 04:00] VITALS: BP 129/80; PULSE 61; RESP 18; TEMP 96; O2SAT 94
[2016-08-27] MEDS: NYSTATIN 100,000 U/GM PWD 15 GM BTL TOPICAL SCH ×2 (05:44→13:21)
[2016-08-27] MEDS: INSULIN ASPART SUPPLEMENTAL SCALE SQ SCH ×2 (05:47→12:19)
[2016-08-27 07:43] LABS: AUTOMATED NEUTROPHIL # 8.5 TH/MM3 (1.8-7.7); BASOPHIL # 0.1 TH/MM3 (0-0.2); BASOPHIL % 0.6 % (0.0-2.0); EOSINOPHIL # 0.3 TH/MM3 (0-0.4); HEMATOCRIT 31.4 % (35.0-46.0); LYMPH % 37.8 % (9.0-44.0); LYMPHOCYTE # 6.4 TH/MM3 (1.0-4.8); MEAN CELL VOLUME 92.4 FL (80.0-100.0); MEAN CORPUSCULAR HEMOGLOBIN 29.9 PG (27.0-34.0); MEAN CORPUSCULAR HGB CONC 32.3 % (32.0-36.0); MONO % 9.2 % (0.0-8.0); NEUT % 50.4 % (16.0-70.0); PLATELET COUNT 664 TH/MM3 (150-450); RED CELL DISTRIBUTION WIDTH 16.2 % (11.6-17.2); WHITE BLOOD COUNT 16.8 TH/MM3 (4.0-11.0)
[2016-08-27 07:49] LABS: HEMO FLAGS AUTO DIFF
[2016-08-27 08:00] VITALS: BP 121/67; PULSE 69; RESP 16; TEMP 96.1; O2SAT 95
[2016-08-27 08:07] LABS: BICARBONATE 25.3 MEQ/L (21.0-32.0); MAGNESIUM 1.8 MG/DL (1.5-2.5); POTASSIUM 4.2 MEQ/L (3.5-5.1)
--- NOTE | 2016-08-27 08:11 | PD.PLAS.PN ---
Subjective Remarks Patient stable, afebrile, feels well No new changes at breast. Flaps clean Cultures are ALL NEGATIVE so far. Discussed the leukocytosis that she always has - no clear reasons so far OK to discharge home on oral meds if ok with medical team Vital Signs Date Time Temp Pulse Resp B/P Pulse Ox O2 Delivery O2 Flow Rate FiO2 08/27/16 05:46 18 08/27/16 04:00 96.0 61 18 129/80 94 08/27/16 00:00 96.2 62 17 146/84 95 08/26/16 20:00 96.1 72 18 134/82 94 08/26/16 16:00 96.8 60 16 116/69 93 08/26/16 12:00 97.8 63 16 100/63 95 08/26/16 08:36 97 21 I/O 08/26/16 08/26/16 08/26/16 08/27/16 08/27/16 08/27/16 07:00 15:00 23:00 07:00 15:00 23:00 Intake Total 300 ml 480 ml 480 ml Output Total 25 ml 30 ml 30 ml Balance 275 ml 450 ml 450 ml Intake Oral 480 ml 480 ml IV Total 300 ml Drainage Total 25 ml 30 ml 30 ml # Voids 3 6 4 Laboratory Tests Test 08/27/16 06:05 White Blood Count 16.8 Red Blood Count 3.40 Hemoglobin 10.1 Hematocrit 31.4 Mean Corpuscular Volume 92.4 Mean Corpuscular Hemoglobin 29.9 Mean Corpuscular Hemoglobin 32.3 Concent Red Cell Distribution Width 16.2 Platelet Count 664 Mean Platelet Volume 8.9 Neutrophils (%) (Auto) 50.4 Lymphocytes (%) (Auto) 37.8 Monocytes (%) (Auto) 9.2 Eosinophils (%) (Auto) 2.0 Basophils (%) (Auto) 0.6 Neutrophils # (Auto) 8.5 Lymphocytes # (Auto) 6.4 Monocytes # (Auto) 1.5 Eosinophils # (Auto) 0.3 Basophils # (Auto) 0.1 CBC Comment AUTO DIFF Date/Time Procedure Status Source Growth 08/24/16 21:14 Gram Stain - Final Resulted Wound Breast 08/24/16 21:14 Wound Culture - Preliminary Resulted Wound Breast NO GROWTH IN 48 HOURS. 08/24/16 21:14 Fungal Smear - Final Resulted Wound Breast NO FUNGAL ELEMENTS SEEN. 08/24/16 21:14 Fungal Culture Resulted Wound Breast Pending 08/24/16 21:14 Acid Fast Stain - Final Resulted Wound Breast NO ACID FAST BACILLI SEEN 08/24/16 21:14 Mycobacterial Culture Resulted Wound Breast Pending 08/24/16 00:00 Aerobic Blood Culture - Preliminary Resulted Blood Peripheral NO GROWTH IN 2 DAYS 08/24/16 00:00 Anaerobic Blood Culture - Preliminary Resulted Blood Peripheral NO GROWTH IN 2 DAYS Result Diagram: 08/27/16 0605 08/26/16 0540 David Nagel MD Aug 27, 2016 08:11
[2016-08-27] MEDS: SODIUM CHLORIDE 0.9% FLUSH 10 ML FLUSH IV FLUSH SCH (08:21)
[2016-08-27] MEDS: FLUTICASONE PROPIONATE 50 MCG/ACT 16 GM NASAL SPRAY EACH NARE SCH (08:21)
[2016-08-27] MEDS: DOCUSATE SODIUM 100 MG CAP PO SCH (08:22)
[2016-08-27] MEDS: POTASSIUM CHLORIDE 20 MEQ CONTROLLED RELEASE TAB PO SCH (08:22)
[2016-08-27] MEDS: GABAPENTIN 300 MG CAP PO SCH (08:22)
[2016-08-27] MEDS: INSULIN DETEMIR 100 UNITS/ML VIAL SQ SCH (08:22)
[2016-08-27] MEDS: METOPROLOL TARTRATE 50 MG TAB PO SCH (08:22)
[2016-08-27 09:31] LABS: MYELOCYTES 1 % (0-0); NEUTROPHIL # MANUAL DIFF 8.7 TH/MM3 (1.8-7.7); PLATELET ESTIMATE SMEAR HIGH (NORMAL); PLATELET MORPHOLOGY NORMAL (NORMAL); POLYS (SEG NEUTROPHILS) 51 % (16-70); SCAN/DIFF FINAL DIFF MANUAL; WBC DIFF SAMPLE 100
[2016-08-27 12:00] VITALS: BP 116/68; PULSE 63; RESP 16; TEMP 97.2; O2SAT 95
[2016-08-27] MEDS ORDERED: LEVA500T PO (12:28)
[2016-08-27] MEDS ORDERED: CLIN1CAP6 PO (12:28)
[2016-08-27] MEDS ORDERED: OXYC1CAP PO (12:32)
--- NOTE | 2016-08-27 12:34 | HHI.DCPOC ---
Discharge Care Plan Diagnosis: (1) Postoperative infection of breast incision (2) Depression (3) COPD (chronic obstructive pulmonary disease) (4) DM (diabetes mellitus) (5) HTN (hypertension) Goals to Promote Your Health * To prevent worsening of your condition and complications * To maintain your health at the optimal level Directions to Meet Your Goals Take your medications as prescribed Follow your dietary instruction Follow activity as directed Keep your appointments as scheduled Take your immunizations and boosters as scheduled If your symptoms worsen call your PCP, if no PCP go to Urgent Care Center or Emergency Room Smoking is Dangerous to Your Health. Avoid second hand smoke Call the 24-hour hour crisis hotline for domestic abuse at Azael Ryan DO Aug 27, 2016 12:34
--- NOTE | 2016-08-27 12:43 | HHI.DS ---
Discharge Summary Admission Date Aug 24, 2016 at 01:46 Discharge Date: Aug 27, 2016 Admitting Diagnosis Left breast infection post op (1) Postoperative infection of breast incision Diagnosis: Principal (2) DM (diabetes mellitus) Diagnosis: Secondary (3) HTN (hypertension) Diagnosis: Secondary (4) COPD (chronic obstructive pulmonary disease) Diagnosis: Secondary (5) Depression Diagnosis: Secondary Consultants Dr. David Nagel, Plastic Surgeon Brief History Mrs. Douglass is a pleasant 66 y/o female with invasive ductal carcinoma of the left breast s/p mastectomy in 03/2016, diabetes mellitus, GERD, hypertension , osteoarthritis, peripheral neuropathy, and hyperlipidemia. Pt was previously seen by us in 04/2015 with an extensive abscess in the left breast and was seen by Dr. Lawler and underwent incision and drainage. Subsequently she was treated with IV antibiotics at that time. Cultures at that time grew out Staph aureus. She was found to have a lump in her left breast and biopsy in 02/2016 revealed invasive ductal carcinoma and pt underwent left breast mastectomy and sentinel node biopsy in 03/2016 with all lymph nodes being negative. Pt was seen by Dr. Nagel and underwent left breast reconstruction with tissue pulmonary disease specialist on August 09, 2016. She reports that she followed up with Dr. Nagel for reexamination 1 week ago and when the bandages were removed the patient was noted to have redness and swelling to the left breast suspicious for postoperative infection. She was started on Bactrim. She reports that this past weekend she began to note yellow drainage from the left breast. She reports that this again sealed over and she thought things were improving up until yesterday when the swelling , redness, pain increased and then she developed drainage from the wound again. She did not call to notify him of the recent changes. She denies any fevers or chills, nausea or vomiting. She reports that over the last 2 days she has had intermittent diarrhea. She reports that yesterday she had 4-5 episodes of brown loose stool. She denies having any blood in her stool or mucus in her stool. She reports the diarrhea improved after taking Imodium as night. The patient denies having any worsening shortness of breath. She reports that she does have some shortness of breath with exertion related to her COPD, she is not on any home O2. The patient denies any chest pain, worsening shortness of breath from baseline, abdominal pain, vomiting, urinary symptoms, or neurologic symptoms. CBC/BMP: 08/27/16 0605 08/27/16 0605 Significant Findings Laboratory Tests Test 08/25/16 08/26/16 08/27/16 06:18 05:40 06:05 Random Glucose 481 MG/DL 120 MG/DL 132 MG/DL (74-106) (74-106) (74-106) White Blood Count 18.5 TH/MM3 16.8 TH/MM3 (4.0-11.0) (4.0-11.0) Red Blood Count 3.59 MIL/MM3 3.40 MIL/MM3 (4.00-5.30) (4.00-5.30) Hemoglobin 10.8 GM/DL 10.1 GM/DL (11.6-15.3) (11.6-15.3) Hematocrit 32.7 % 31.4 % (35.0-46.0) (35.0-46.0) Platelet Count 702 TH/MM3 664 TH/MM3 (150-450) (150-450) Neutrophils # (Auto) 10.5 TH/MM3 8.5 TH/MM3 (1.8-7.7) (1.8-7.7) Lymphocytes # (Auto) 6.2 TH/MM3 6.4 TH/MM3 (1.0-4.8) (1.0-4.8) Monocytes # (Auto) 1.4 TH/MM3 1.5 TH/MM3 (0-0.9) (0-0.9) Neutrophils # (Manual) 10.4 TH/MM3 8.7 TH/MM3 (1.8-7.7) (1.8-7.7) Platelet Estimate HIGH (NORMAL) HIGH (NORMAL) Chloride Level 108 MEQ/L 110 MEQ/L (98-107) (98-107) Blood Urea Nitrogen 22 MG/DL (7-18) 23 MG/DL (7-18) Creatinine 1.54 MG/DL 1.40 MG/DL (0.50-1.00) (0.50-1.00) Estimat Glomerular Filtration 34 ML/MIN (>89) 38 ML/MIN (>89) Rate Monocytes (%) (Auto) 9.2 % (0.0-8.0) Monocytes % 10 % (0-8) Myelocytes 1 % (0-0) Imaging Last Impressions Chest X-Ray 08/23/16 2300 Signed Impressions: Service Date/Time: Tuesday, August 23, 2016 23:41 - CONCLUSION: 1. Mild basilar density most characteristic of atelectasis. No effusion or pneumothorax. Dennis Powell MD PE at Discharge General: NAD, AAOx3 Chest: CTA, left breast incision with steristrips in place, EUFEMIA drain in place with serous drainage. Wound much improved from admission. No surrounding erythema or discharge. Surgical wound is healing well and approximated. Cardiac: Regular Abd: +BS, soft ND/NT Ext: No edema Hospital Course (1) Postoperative infection of breast incision Status: Acute Plan: - Pt with hx of left breast invasive ductal carcinoma s/p left breast mastectomy in 03/2016 - Pt underwent left breast reconstruction with tissue pulmonary disease specialist on August 09, 2016. She reports that she followed up with Dr. Nagel for reexamination 1 week ago and was noted to have redness and swelling to the left breast suspicious for postoperative infection. She was started on Bactrim. She reports that this past weekend she began to note yellow drainage from the left breast, but she thought things were improving up until yesterday when the swelling, redness, pain increased and then she developed drainage from the wound again. - Pt was given Aztreonam, Vancomycin and Flagyl in the ED - Blood cultures (08/24) --> NO growth at 3d - WBC count was over 17,000 (08/24) -- 18.5 (3.31), 16.8 (08/27/16) - Pt has been afebrile throughout her hospitalization. NO dysuria, no cough, no sweats. - Pt underwent left breast exploration, debridement and removal of tissue pulmonary disease specialist on 08/24/[address] Nagel. - Pt seen by ID, Dr. Picharod. - Aztreonam, Vancomycin and Flagyl (08/24 - 08/27/16) - Pt will be discharged on PO clindamycin and levaquin x 14d - Pt will f/u with PCP, Dr. Ghanshyam Wright in 1 week - Pt will f/u with Surgeon, Dr. David Nagel. Pt has appointment to see Dr. Nagel on 08/30/16. Pt will leave with EUFEMIA drain in place. Dr. Nagel anticipates leaving the drain in place for 10 days. - see discharge orders (2) DM (diabetes mellitus) Status: Chronic Plan: - resume home DM regimen upon discharge - f/u with PCP in 1 week (3) HTN (hypertension) Status: Chronic Plan: - BP stable on Metoprolol - resume losartan upon discharge (hold for SBP below 120) - hold norvasc - pt to keep home BP log and f/u with PCP, Dr. Wright in 1 week. (4) COPD (chronic obstructive pulmonary disease) Status: Acute Plan: - Duonebs PRN (5) Depression Status: Chronic Plan: - Cont. home meds Pt Condition on Discharge: Stable Discharge Disposition: Discharge Home Discharge Instructions DIET: Follow Instructions for: Heart Healthy Diet, Diabetic Diet Activities you can perform: Regular-No Restrictions Follow up Referrals: PCP Follow-up - [address] Ghanshyam Wright Surgical - [address] David Nagel New Medications: Clindamycin (Clindamycin) 300 Mg Cap 300 MG PO TID Infection #42 Ref 0 CAP Levofloxacin (Levaquin) 500 Mg Tab 500 MG PO DAILY Infection #14 Ref 0 TAB Oxycodone (Oxycodone) 5 Mg Cap 5 MG PO Q6H PRN PAIN #12 Ref 0 CAP Continued Medications: Albuterol 6.7 GM Inh (Proventil Hfa 6.7 GM Inh) 90 Mcg/Act Aer 1 PUFF INH Q6H PRN SHORTNESS OF BREATH #1 Ref 0 INHALER Albuterol Neb (Albuterol Neb) 1.25 Mg/3 Ml Neb 1.25 MG NEB Q6HR NEB PRN SHORTNESS OF BREATH #50 Ref 0 NEBULE Amitriptyline HCl (Elavil) 25 Mg Tab 50 MG PO HS Atorvastatin (Atorvastatin) 40 Mg Tab 40 MG PO HS Cholesterol Management #30 Ref 0 TAB Furosemide (Furosemide) 20 Mg Tab 20 MG PO EVERY OTHER DAY #30 Ref 0 TAB Gabapentin (Gabapentin) 300 Mg Cap 300 MG PO BID takes at 0800 and 1500 #60 Ref 0 CAP Gabapentin (Gabapentin) 300 Mg Cap 900 MG PO HS #90 Ref 0 CAP Insulin Aspart Inj (Novolog Inj) 100 Unit/Ml Inj 15 UNITS SQ TIDPC Insulin Degludec Inj (Tresiba Flextouch Pen Inj) 300 unit/3 ML Pen 50 UNITS SQ HS Blood Sugar Management #15 Ref 0 ML Losartan (Losartan) 50 Mg Tab 50 MG PO BID hold for SBP below 120 Blood Pressure Management #30 Ref 0 TAB Magnesium Oxide (Magnesium Oxide) 400 Mg Cap 1 CAP PO DAILY Meclizine (Meclizine) 25 Mg Tab 25 MG PO PRN DIZZINESS PRN VERTIGO Ref 0 TAB Metoprolol Tartrate (Metoprolol Tartrate) 50 Mg Tab 50 MG PO BID #60 Ref 0 TAB Mometasone Nasal Rhododendron (Nasonex Nasal Rhododendron) 50 Mcg/Act Naspr 2 SPRAY EACH NARE DAILY Allergy Management #1 Ref 0 BOTTLE Potassium Chloride Microencaps (Klor-Con M20) 20 Meq Tab 20 MEQ PO DAILY Electrolyte Replacement #30 Ref 0 TAB Sertraline (Zoloft) 50 Mg Tab 50 MG PO HS #30 Ref 0 TAB Discontinued Medications: Amlodipine (Amlodipine) 2.5 Mg Tab 2.5 MG PO DAILY Blood Pressure Management #30 Ref 0 TAB Promethazine (Phenergan) 25 Mg Tab 25 MG PO Q4HR PRN Nausea/Vomiting Ref 0 TAB Azael Ryan DO Aug 27, 2016 12:43
--- NOTE | 2016-08-28 08:46 | MP ---
cc: YOSELYN NAGEL M.D. DATE OF SURGERY: 08/24/2016 PREOPERATIVE DIAGNOSIS Left breast status post tissue profile saw setup operator and AlloMax reconstruction, possible infection. POSTOPERATIVE DIAGNOSIS Left breast status post tissue profile saw setup operator and AlloMax reconstruction, possible infection, large amount of mucoid collection around the profile saw setup operator. OPERATION Left breast exploration, removal of tissue profile saw setup operator and AlloMax and debridement of breast cavity. SURGEON Dr. Nagel. ANESTHESIA General. INDICATIONS This is a 66-year-old white female who has undergone a left mastectomy back in March of 2016. A tissue profile saw setup operator and AlloMax reconstruction was done about two weeks ago. She has progressively bulging of the incision line and a drainage has started. She also was having high white count, she is diabetic, stage III renal failure and multiple medical problems. The surgery was done to explore the area and remove the prosthesis AlloMax and debride the entire pocket. Additional info : She has a known issue with high WBC count of unknown origin from before, possibly from a cancer related leukemoid type of reaction? PROCEDURE The patient was brought to the operating room, was given supine position. Anesthesia was induced. Prep and drape was done. She is on scheduled IV antibiotics. Time-out was called and completed. The previous surgical suture was removed. The incision was opened gently with a hemostat and immediately a fair amount of mucoid and liquid drainage was obtained. A culture sample was taken. The incision was laid open completely and the sutures were also released. It was noted that the AlloMax has perforations and the underside of the AlloMax was full of similar mucoid whitish-yellow content. The AlloMax was split open. The profile saw setup operator was removed. The large amount of mucoid drainage approximately 40-60 ccs was physically scooped out while aspirating the liquid part. The entire AlloMax was completely removed. The area was checked for any tracts or any abscess pockets, none were immediately visible and the pocket was washed with small amount of saline and a sterile scrub brush was used inside to scrape the chest wall side and the flap underside vigorously for approximately 5 minutes. The pocket was then irrigated copiously cleaned with antibiotic containing solution and the cavity was double-checked for any active bleeding and again for any tracts or abscess pockets, none were encountered. The cavity appeared very clean and the #10 Christiano-Aviles drain was inserted and secured. The breast tissue flaps were closed loosely with widely spaced 3-0 Prolene mattress sutures to allow good approximation over a closed drain. The patient remained stable. Intraoperative blood loss was less than 5 ccs. No complications. signed, not fully reviewed MD MAXINE Moreno/SHEA /9:12 PM /8:24 AM RICKEY
== END 2016-08-27 15:47 | disposition home or self-care (01) | DRG 857 ==
LOC: NEPE 20:41 → NEDA 08-24 01:46 → NEPHCDU 08-24 07:51 → HOCA 08-25 21:09
PROVIDERS: ADMIT Hospitalist; ATTEND Hospitalist
PROC: 0JD60ZZ Extraction of Chest Subcutaneous Tissue and Fascia, Open Approach (ICD-10-PCS; 2016-08-24)
PROC: 0HPU0NZ Removal of Tissue Expander from Left Breast, Open Approach (ICD-10-PCS; principal; 2016-08-24 20:11)
DX: T81.4XXA Infection following a procedure, initial encounter (principal); I13.0 Hypertensive heart and chronic kidney disease with heart failure and stage 1 through stage 4 chronic kidney disease, or unspecified chronic kidney disease; E11.22 Type 2 diabetes mellitus with diabetic chronic kidney disease; E11.42 Type 2 diabetes mellitus with diabetic polyneuropathy; I50.9 Heart failure, unspecified; J98.11 Atelectasis; T85.898A Other specified complication of other internal prosthetic devices, implants and grafts, initial encounter; J44.9 Chronic obstructive pulmonary disease, unspecified; K21.9 Gastro-esophageal reflux disease without esophagitis; F32.9 Major depressive disorder, single episode, unspecified; R19.7 Diarrhea, unspecified; E03.9 Hypothyroidism, unspecified; E78.5 Hyperlipidemia, unspecified; J45.909 Unspecified asthma, uncomplicated; M19.90 Unspecified osteoarthritis, unspecified site; N18.3 Chronic kidney disease, stage 3 (moderate); G62.9 Polyneuropathy, unspecified; E55.9 Vitamin D deficiency, unspecified; E66.9 Obesity, unspecified; Y83.4 Other reconstructive surgery as the cause of abnormal reaction of the patient, or of later complication, without mention of misadventure at the time of the procedure; Z68.33 Body mass index [BMI] 33.0-33.9, adult; Z79.4 Long term (current) use of insulin; Z85.3 Personal history of malignant neoplasm of breast; Z87.891 Personal history of nicotine dependence; Z88.0 Allergy status to penicillin; Z88.5 Allergy status to narcotic agent; Z90.12 Acquired absence of left breast and nipple; Z90.81 Acquired absence of spleen; Z91.041 Radiographic dye allergy status
CPT/HCPCS: 71010; 76937; 80048; 80053; 82947; 82948; 83605; 83735; 85007; 85025; 85027; 85610; 85730; 86140; 86403; 87015; 87040; 87070; 87102; 87116; 87205; 87206; 93005; 96365; 96366; 96368; 96375; J1815; J2250; J2270; J2405; J3010; J3370; J7030; J7050